=== PATIENT | male | born 1975 | race Caucasian/White ===

== ENCOUNTER 2021-08-04 19:32 | Inpatient (IN) | payer OTHER, SELFPAY ==
[2021-08-04] VITALS (19 sets, daily range): BP systolic 103–136; BP diastolic 68–98; PULSE 64–81; RESP 12–26; TEMP 35.9–36.8; O2SAT 94–98; BMI 33.9; BMI 35.2
--- NOTE | 2021-08-04 19:42 | W.ED.CHESTPA ---
HPI - Chest Pain General: Stated Complaint: STEMI Time Seen by Provider: 08/04/21 19:33 Source: patient and EMS Mode of arrival: EMS Limitations: no limitations History of Present Illness: 46-year-old male history of coronary artery disease had a stent placed back in 2017 he states he started having chest pain roughly 2 hours ago went to outside ER seen there had an EKG it showed a STEMI I spoke to physician on phone excepted transfer here. Patient has received 2 nitro his pain is down to 2 out of 10 EKG with EMS does show an inferior ST elevation TX. He denies any fevers. Has had some dyspnea and nausea and diaphoresis Associated symptoms: Deny abdominal pain, dyspnea, fever(s), nausea or vomiting Review of Systems Const: Denies: fever(s), chills, body aches or change in appetite Eyes: Denies: blurry vision or eye discomfort ENMT: Denies: throat pain or dental pain Card: Reports: chest pain Resp: Denies: dyspnea GI: Denies: abdominal pain, nausea, vomiting or diarrhea : Denies: dysuria Musc: Denies: neck pain or back pain Skin/Breast: Denies: rash Neuro: Denies: headache(s) Psych: Denies: depression Connor/Lymph: Denies: easy bruising All/Imm: Denies: urticaria PFSH ED PFSH: Medical History (Updated 08/04/21 @ 19:44 by Aly Sands MD) CAD (coronary artery disease) Social History (Updated 08/04/21 @ 19:45 by Aly Sands MD) Smoking and tobacco status: current every day smoker Physical Exam Const: COMMON NORMALS: patient oriented x3 GENERAL APPEARANCE: in distress and ill appearing HENMT: COMMON NORMALS: normocephalic and atraumatic HEAD & SCALP: normocephalic and atraumatic Eye: COMMON NORMALS: Equal, round and reactive pupils present and EOMs intact bilaterally PUPIL: Yes Equal, round and reactive pupils present Neck/C-Spine: COMMON NORMALS: full ROM and supple Chest: COMMONS NORMALS: normal inspection of the chest and normal palpation of entire chest wall Resp: COMMON NORMALS: normal respiratory effort, No retractions, No use of accessory muscles and clear to auscultation bilaterally AUSCULTATION: clear to auscultation bilaterally Cardio: COMMON NORMALS: regular rate, regular rhythm and No murmurs present (Cardio) RATE: regular rate RHYTHM: regular rhythm GI: COMMON NORMALS: Normal to inspection, nondistended, normoactive bowel sounds present, Soft to palpation, non-tender and no masses PALPATION: Yes Soft to palpation Extremity: COMMON NORMALS: normal to inspection and full ROM Neuro: COMMON NORMALS: patient oriented x3, moves all extremities and no focal motor deficits Psych: COMMON NORMALS: mental status grossly normal, Normal thought process present and cooperative THOUGHT PROCESS: Normal thought process present Skin: COMMON NORMALS: no rashes or lesions noted and no wounds GENERAL SKIN EXAM: no rashes or lesions noted MDM - Chest Pain Medical Decision Making Patient presents here with an ST elevation TX. Simulation Engineer is here patient received Plavix and heparin at outside facility patient is going to the Auto Glass Technician at this time. Critical Care Time Critical Care Time: Critical Care Time: Yes Total Critical Care Time: 35 Attestation: The high probability of a clinically significant, sudden or life threatening deterioration of the patient's CV system(s) required my full and direct attention, intervention and personal management. The critical care time is as shown. This time is in addition to time spent performing any reported procedures but includes the following: [x] Data and vital sign review and interpretation [x] Patient assessment, examination and intervention [x] Documentation [x] Medication orders and management Discharge Plan Discharge Patient Disposition: Admitted As Inpatient Clinical Impression: ST elevation (STEMI) myocardial infarction Condition: Stable Coding Level of Care Code ED Laborer Drying Department for Brady Mcdonald
--- NOTE | 2021-08-04 19:43 | ECG_ITS ---
[facility] Test Date: 2021-08-04 Pat Name: Roland Del Angel Department: Room: 105 Gender: Male Pharmacognosist: : 1975 Requested By: Aly Sands Order Number: [id number] Laura MD: Gavin Kruse M.D. Measurements Intervals [place] Rate: 72 P: 63 MD: 187 QRS: 2 QRSD: 102 T: 107 QT: 418 QTc: 458 Interpretive Statements SINUS RHYTHM INFERIOR MYOCARDIAL INFARCTION , POSSIBLY ACUTE [40+ ms Q WAVE AND/OR ST/T ABNORMALITY IN II/aVF] POSSIBLE ANTEROLATERAL MYOCARDIAL INFARCTION , OF INDETERMINATE AGE [30 ms Q WAVE IN I/aVL/V3-V6] ACUTE [place] No previous ECG available for comparison Electronically Signed On 08-05-2021 22:48:33 CDT by Gavin Kruse M.D. [id number]
--- NOTE | 2021-08-04 19:47 | P.HP_ITS ---
Providers/Chief Complaint Admitting Physician: radha Chief Complaint: STEMI History of Present Illness Roland Del Angel is a 46 year old male who says that he has had 2 heart attacks in the past. He was in a different state when these occurred. He states that he has 1 stent. He has never been to this facility before. 2 hours prior to admission he noticed the onset of what he calls his typical heart attack pain with vomiting, back pain, jaw pain and pain down his left arm. He states that he has not taken his medicines for 2 days. He went to the emergency room at [place] and was sent here as a STEMI alert. We did not receive any paperwork from the originating hospital but we were told his first troponin was negative. He states he is supposed to take metoprolol, atorvastatin, lisinopril, Brilinta, aspirin and nitroglycerin. Here his EKG shows ST segment elevation inferiorly. There are reciprocal changes in leads V1 and V2. Review of Systems Narrative: Patient was reluctant to provide a review of systems because he states he is in too much pain. PFSH Acute PFSH: Medical History (Updated 08/04/21 @ 19:44 by Aly Sands MD) CAD (coronary artery disease) Social History (Updated 08/04/21 @ 19:45 by Aly Sands MD) Smoking and tobacco status: current every day smoker Physical Exam Narrative: GENERAL: In general he looks uncomfortable. HEENT: Exam within normal limits. NECK: Supple without jugular vein distention. The carotid upstroke is normal without bruits. BACK: Exam normal. LUNGS: Clear. HEART: Regular rate and rhythm. ABDOMEN: Benign without organomegaly or tenderness. EXTREMITIES: No edema. NEUROLOGIC: Exam normal. SKIN: Unremarkable. Multiple tattoos in multiple areas A&P Assessment and plan (1) CAD (coronary artery disease): Status: Acute (2) ST elevation (STEMI) myocardial infarction: Status: Acute Plan Cardiac catheterization laboratory as soon as possible Attestations Medical Necessity Statement*: Patient requires hospitalization for management of an acute inferior wall MD. He will require a 2 midnight stay. Coding Level of Care Code New Pt Acute Stretcher Drier Operator for [facility] Fwd Patient Type New History Detailed Exam Detailed Medical Decision Making Moderate Complexity Diagnoses CAD (coronary artery disease) I25.10 ST elevation (STEMI) myocardial infarction I21.3 Time Spent (min) 30
--- NOTE | 2021-08-04 19:47 | XACV_ITS ---
Exam Room: 1 Ht: 183 cm Wt: 113 kg BSA: 2.44 m2 Gender: Male : 1975 Exam Priority: Routine Procedure(s): Procedure Description: Diagnostic procedure Procedure Description: PCI procedure Procedure Description: Left Heart Catheterization Procedure Description: Left ventriculography Procedure Description: Drug Eluting Coronary Stent Procedure Description: Coronary Angiography Diagnostic Cath Status: Emergency Diagnostic Findings * 46-year-old male with prior history of LAD stent in a different facility. Chest pain 2 hours prior to presentation to an outside facility. No records accompanied the patient. EKG revealed ST elevation in leads II, 3, aVF with ST depression in leads V1 and V2. Patient was brought to the Kiln Burner. * Initially the procedure was attempted via the right radial artery. The patient was agitated and would not hold still. He was moving his arms and legs everywhere. He had to be sedated in order to complete the procedure. It was completed via the right femoral artery. * Coronary angiography reveals right coronary artery dominance. The right coronary artery is occluded in the midportion. There is also an 85% distal right coronary artery lesion prior to the takeoff of the PDA. Circumflex contains a 50 to 60% eccentric stenosis in the proximal portion. The LAD is stented. The stent is patent. PCI Status: Emergency PCI LVEF Assessed: Yes PCI Indication: Immediate PCI for STEMI Interventional Findings * Guide was placed, a wire was placed across the mid right coronary artery lesion. The lesion was stented with a 4 x 15 mm stent. The distal right coronary artery lesion was then noted. This lesion was stented with a 4 x 12 mm stent. No complications.. Decision for PCI with Surgical Consult: No PCI for Multi-vessel Disease: No Conclusions 1. Acute inferior wall AR with occluded right coronary artery. Mid right coronary artery stent followed by distal right coronary artery stent. Previously placed LAD stent is patent. Recommendations * Medical treatment. Interventional RX Recommendation: medical therapy and/or counseling Diagnostic RX Recommendation: medical therapy and/or counseling Anticoagulation: Heparin Ventriculography Ejection Fraction: 45.0 % Pressures Phase:Rest AO : 63 / 47 ( 55 ) @ 3:50:17 PM 99 / 60 ( 75 ) @ 3:50:17 PM 98 / 60 ( 75 ) @ 3:50:17 PM LV : 122 / -5 / 13 @ 3:50:17 PM 122 / -4 / 13 @ 3:50:17 PM 129 / -3 / 13 @ 3:50:17 PM 121 / -3 / 16 @ 3:50:17 PM Valves Phase:DefaultPhase AV : 23.0 @ 8:50:17 PM AV Mean Gradient: 16.0 @ 8:50:17 PM Clinical Evaluation EBL: 5mL-10mL Procedural Details Pre-Procedure Time Out. Identified patient by full name and date of as verbalized by the patient/guarantor. Does the consent match the physician's order: N/A Emergent. Accurate & Complete Informed Consent: N/A Emergent; Informed Consent not obtained due to time critical life threat. Inpatient/Outpatient History & Physical on Chart: N/A Emergent; Informed Consent not obtained due to time critical life threat. If H&P is completed, is and addenduem needed: N/A Emergent; Informed Consent not obtained due to time critical life threat; If yes, is the addendum complete: N/A Emergent; Informed Consent not obtained due to time critical life threat. Visualize and Verify Site with Patient/Guarantor: N/A. Relevant Radiology Images available: N/A Emergent; Informed Consent not obtained due to time critical life threat. Pre-op teaching completed and patient verbalized understanding. The risks, benefits, and alternatives of sedation and/or procedure were discussed by physician. The patient agrees to continue. Procedure started. [facility] Clinical Fraility Score: 3: Managing Well. Kiln Burner Indications: ACS <= 24 hours. Chest Pain Symptom Assessment: Typical Angina Symptoms. Cardiovascular Instability: Yes, if yes, Persistant Ischemic Symptoms. Correct patient, site and procedure confirmed by cath team. Current diagnosis: STEMI. PERRLA. Strong, equal hand mortgage protection specialist bilaterally. Lungs clear x 5 lobes. IV Site on Arrival: 20 gauge in the right anticubital. IV Site on Arrival: 20 gauge in the left anticubital. IV Fluids: 0.9% NaCl at KVO. 0 mL infused prior to brick and blocker aid labor. Pre Procedural Pulses: right radial was 3+. Oxygen started at 2liters/min via nasal canula. right groin was prepped with chloroprep then draped in the usual sterile fashion. right radial was prepped with chloroprep then draped in the usual sterile fashion. Baseline sample Acquired. HR: 80 BPM. Physician notified. Patient's family unavailable. Equipment: 6F - Radial. Cardiac Cath Pack. ACIST Manifold Kit Model BT 2000. Heparinized Saline (2 units/mL), 1000 mL bag. Physician arrived. Physician scrubbed in. Immediate Pre-Procedure Time Out. Correct Patient: Yes; Correct Procedure: Yes; Correct Site: Yes; Correct Patient Position: Yes; Correct Supplies: Yes; Dried Flammable Prep: Yes; Blood Products Available: N/A;. Lidocaine 1% infiltrated to the right radial. Aborting radial access, moving to femoral. Lidocaine 1% infiltrated to the right groin. Arterial access obtained with micropuncture set. PCI Indication: STEMI. 6 dominican JR 4 guide catheter was inserted over the wire. [place] guidewire was advanced through the guide catheter to lesion in the mid RCA. Inflation Number : 1 A BARBRA R DARSHAN 4.0X15 PEE -Lot Number# [id number]. Exp was prepped and advanced across the Mid RCA. The stent was deployed at 12 CECY for 0:32 seconds. Results checked. Stent balloon out over wire. Inflation Number : 1 A MDT R DARSHAN 4.0X12 PEE -Lot Number# [id number] Exp was prepped and advanced across the Dist RCA. The stent was deployed at 12 CECY for 0:26 seconds. Wire out. Guide catheter out. ALLIANCE DIRECTOR here. sheet pile hammer operator called to [facility] anesthesia stat. EDP Sample taken: LV 122/-6,13; HR: 84 BPM; SpO2: 96%. A 6 dominican Angled Pig catheter in over wire. LV gram performed in KERNS @ 10 mL/second for a total of 30 mL. EDP Sample taken: LV 122/-5,13; HR: 86 BPM; SpO2: 95%. EDP Sample taken: LV 129/-4,13; HR: 89 BPM; SpO2: 94%. Pullback taken: LV 121/-4,16; AO 99/60(75); Mean: 16mmHg, Peak to Peak: 23mmHg, SEP: 18sec/min; HR: 85 BPM; SpO2: 93%. Catheter out. Labs drawn and sent to lab. Sheath(s) sutured into position with 2-0 silk and sterile 4x4's and Op-site applied over the site. No oozing or signs and symptoms of hematoma noted. Arterial sheath flushed and connected to tranducer and pressure bag with heparinized saline. Post Procedure: bilateral dorsalis pedis pulse 2+. Post Procedure: bilateral posterior tibial pulse 2+. PERRLA. Strong, equal hand mortgage protection specialist bilaterally. No VTE prophylaxis required. Medication's Wasted: Heparin = 1000 units. Total IV fluids: 67 mL. A Suture was successful obtaining hemostatsis at the Right Femoral artery insertion site. PCI Indication : Immediate PCI for STEMI. Post-op diagnosis: anterior wall AR. Complications: none. Estimated blood loss: 5mL-10mL. Responsiveness - Normal response to verbal stimuli; alert and oriented, PERRLA. Airway - Unaffected, no intervention required; spontaneous ventilation. Circulation: W/N/L, pulses unchanged. Nausea/Vomiting: No. Procedure completed. Patient transferred by bed to 1st floor. Stent balloon out over wire. Results checked. Vital chart was stopped. Access Site Site: Right Femoral artery Sheath Size: 6 Fr Hemostasis Method: Suture Hemostasis Success: Successful Procedure Medications Start: 8:02 PM Stop: 8:02 PM Medication: Versed Amount: 1 mg Route: I.V. Start: 8:02 PM Stop: 8:02 PM Medication: Fentanyl Amount: 50 mcg Route: I.V. Start: 8:02 PM Stop: 8:02 PM Medication: Versed Amount: 1 mg Route: I.V. Start: 8:04 PM Stop: 8:04 PM Medication: Fentanyl Amount: 50 mcg Route: I.V. Start: 8:05 PM Stop: 8:05 PM Medication: Versed Amount: 1 mg Route: I.V. Start: 8:07 PM Stop: 8:07 PM Medication: Versed Amount: 1 mg Route: I.V. Start: 8:08 PM Stop: 8:08 PM Medication: Versed Amount: 1 mg Route: I.V. Start: 8:08 PM Stop: 8:08 PM Medication: Fentanyl Amount: 50 mcg Route: I.V. Start: 8:18 PM Stop: 8:18 PM Medication: Atropine Amount: 0.2 mg Route: I.V. Start: 8:26 PM Stop: 8:26 PM Medication: Zofran (ondansetron) Amount: 4 mg Route: I.V. Start: 8:35 PM Stop: 8:35 PM Medication: Heparin Amount: 2000 units Route: I.V. I, the attending physician, have reviewed and verified all procedure medications. Yes, all medications given per verbal order Report Signatures Finalized by Dr. Jadiel Pascal MD on 08/04/2021 08:53 PM
[2021-08-04] MEDS: ondansetron 2 mg/ML SDV 2 mL 4 MG IVP (19:52)
[2021-08-04] MEDS: morphine 4 mg/mL SDV 1 mL IVP (19:52)
[2021-08-04 20:01] LABS: Basophils % 0.4 %; Eosinophils # 0.2 10^3/uL (0.0-0.8); Eosinophils % 1.7 %; Hematocrit 42.4 % (42.0-52.0); Hemoglobin 14.7 g/dL (11.7-16.6); Lymphocytes # 1.9 10^3/uL (0.8-4.8); Lymphocytes % 20.2 %; Mean Corpuscular HGB Conc 34.7 g/dL (30.0-36.0); Mean Corpuscular Volume 92.2 fl (80-94); Mean Platelet Volume 10.4 fL (7.4-10.4); Monocytes # 0.6 10^3/uL (0.2-0.9); Monocytes % 6.3 %; Neutrophils # 6.61 10^3/uL (1.8-7.7); Neutrophils % 71.2 %; Nucleated Red Blood Cells % 0 %; Platelet Count 155 10^3/cmm (130-400); Red Cell Distribution Width 12.7 % (12.1-15.1); White Blood Count 9.3 10^3/uL (4.0-10.0)
[2021-08-04 20:19] LABS: Troponin(5th) Baseline 10 ng/L (0-15)
[2021-08-04 20:21] LABS: Alanine Aminotransferase 33 U/L (0-41); Alkaline Phosphatase 96 IU/L (40-130); Aspartate Amino Transferase 28 U/L (0-40); Blood Urea Nitrogen 21 mg/dL (6-20); Calcium 9.2 mg/dL (8.5-10.5); Carbon Dioxide 21 mmol/L (22-29); Chloride 106 mmol/L (98-107); Creatinine Clr Calc Pharmacy 130.5026; Globulin 2.9 g/dL (1.3-4.6); Glomerular Filtration Rate 90.1 mL/min (90-130); Glucose 127 mg/dL (65-115); Osmolality Calculated 293 mOsm/kg (285-295); Sodium 139 mmol/L (136-145); Total Bilirubin 0.4 mg/dL (0.15-1.2); Total Protein 6.9 g/dL (6.6-8.7)
[2021-08-04 20:59] LABS: Partial Thromboplastin Time 66.7 SECONDS (23.9-36.7)
--- NOTE | 2021-08-04 21:07 | PC.NURSE ---
Patient received from rn cardiac cath via bed s/p [facility] with PCI. Received report DAVION Pratt. Patient is supine currently. Right femoral access. Sheath remains in place attached to pressure bag. No s/s of bleeding or hematoma formation at this time. Instructed patient on site care and restrictions. Patient verbalized understanding. Spouse at bedside presently. C/o only of mild pain to chest reporting feeling better and different character in pain. Will continue to monitor.
[2021-08-04] MEDS: temazepam 15 mg Capsule PO (21:19)
[2021-08-04] MEDS: atorvastatin 40 mg Tablet 80 MG PO (21:19)
[2021-08-04 21:29] LABS: Troponin 5 2HR 224.1 ng/L (0-15); Troponin 5 2HR Delta 214.1 ABS# (0-10)
[2021-08-04] MEDS: dextrose 5%-sod chloride 0.45% 1,000 ML 100 ML IV (22:07)
[2021-08-04] MEDS: acetaminophen 325 mg Tablet 650 MG PO (22:14)
[2021-08-05] VITALS (18 sets, daily range): BP systolic 96–139; BP diastolic 46–80; PULSE 50–72; RESP 16–23; TEMP 35.9–36.6; O2SAT 7–99
[2021-08-05] LABS: Partial Thromboplastin Time 28.7 SECONDS (23.9-36.7)
--- NOTE | 2021-08-05 00:53 | PC.NURSE ---
Patient's PTT within parameters for sheath removal. Instructed patient on sheath removal, site care and restrictions. Patient verbalized complete understanding. Initiated sheath removal at 0028 per protocol. Hemostasis achieved immediately. Maintained pressure to site for 20min. No s/s of bleeding or hematoma formation observed. VS remained WNL. Covered site with 2x2 and bio-occlusive dressing. Patient denies pain to site. Continues to c/o headache, refusing medication at this time waiting for Tylenol to work . Will continue to monitor.
--- NOTE | 2021-08-05 01:36 | PC.NURSE ---
Assisted patient to left side for comfort. Patient's right leg remain straight at this time. Dressing to right groin remains c,d,i with no s/s of bleeding or hematoma formation observed. Reinforced site care instructions. Patient again verbalized understanding. Will continue to monitor.
--- NOTE | 2021-08-05 01:43 | ECG_ITS ---
[facility] Test Date: 2021-08-05 Pat Name: Roland Del Angel Department: Room: 105 Gender: Male Clearing Inspector: : 1975 Requested By: Aly Sands Order Number: [id number] Laura MD: Gavin Kruse M.D. Measurements Intervals [place] Rate: 68 P: 57 MO: 170 QRS: -12 QRSD: 106 T: 2 QT: 444 QTc: 472 Interpretive Statements SINUS RHYTHM WITH SINUS ARRHYTHMIA POSSIBLE LATERAL MYOCARDIAL INFARCTION , PROBABLY OLD [30 ms Q WAVE IN I/aVL/V5/V6] INFERIOR MYOCARDIAL INFARCTION , PROBABLY OLD [40+ ms Q WAVE AND/OR ST/T ABNORMALITY IN II/aVF] No previous ECG available for comparison Electronically Signed On 08-05-2021 23:05:16 CDT by Gavin Kruse M.D. [id number]
--- NOTE | 2021-08-05 03:57 | PC.NURSE ---
Patient resting on right side. Dressing to right groin remains c,d,i at this time with no s/s of bleeding or hematoma formation observed. Patient denies pain to site. No distress observed. Will continue to monitor.
[2021-08-05 04:46] LABS: Troponin 5 6HR 1456 ng/L (0-15); Troponin 5 6HR Delta 1446 ng/L (0-12)
--- NOTE | 2021-08-05 06:32 | PC.NURSE ---
Received verbal orders from Dr Pascal as ordered for pain and nausea. RBVO
[2021-08-05] MEDS: morphine 4 mg/mL SDV 1 mL 2 MG IVP (06:45)
[2021-08-05] MEDS: ondansetron 2 mg/ML SDV 2 mL 4 MG IVP (06:45)
[2021-08-05] MEDS: alum-mag-hydroxide-sime 30 mL UDC PO (08:28)
[2021-08-05] MEDS: ticagrelor 90 mg Tablet PO ×2 (08:29→17:33)
[2021-08-05] MEDS: metoprolol tartrate 50 mg Tablet PO (08:29)
[2021-08-05] MEDS: acetaminophen 325 mg Tablet 650 MG PO ×2 (08:29→18:59)
[2021-08-05] MEDS: aspirin 81 mg EC Tablet PO (08:29)
--- NOTE | 2021-08-05 09:40 | USCV_ITS ---
Roland Del Angel Age: 46 Gender: M : 1975 Exam Date: 08/05/2021 14:50 Ordering Phys: Keith Rios M.D ([email or web address]) Technologist: Urban Ho [place] [facility] [place]: mi BP: 104 / 66 HR: 66 Rhythm: Sinus Technical Quality: Adequate MEASUREMENTS (Male / Female) Normal Values 2D ECHO LV Diastolic Diameter PLAX 5.0 cm 4.2 - 5.9 / 3.9 - 5.3 cm LV Systolic Diameter PLAX 3.6 cm IVS Diastolic Thickness 1.3 cm 0.6 - 1.0 / 0.6 - 0.9 cm IVS Systolic Thickness 1.2 cm LVPW Diastolic Thickness 1.1 cm 0.6 - 1.0 / 0.6 - 0.9 cm LVPW Systolic Thickness 1.3 cm LVOT Diameter 2.0 cm LV Ejection Fraction 2D Teich 55.8 % LV Ejection Fraction MOD 2C 55.7 % LV Ejection Fraction 2C AL 56.2 % LA Diameter 3.5 cm M-MODE Aortic Annulus Diameter 3.9 cm LA Ao Ratio MM 1.0 MV E Point Septal Separation 0.7 cm DOPPLER AV Peak Velocity 104.0 cm/s LVOT Peak Velocity 91.0 cm/s AV Area Cont Eq vti 3.0 cm squared AV Area Cont Eq pk 2.8 cm squared MV Area PHT 5.0 cm squared Mitral E to A Ratio 1.4 MV E' Velocity 53.0 cm/s Mitral E to MV E' Ratio 10.9 Mitral E to LV E' Lateral Ratio 10.7 Mitral E to LV E' Septal Ratio 11.2 TR Peak Velocity 235.0 cm/s TR Peak Gradient 22.1 mmHg TV Peak E Velocity 104.0 cm/s Right Atrial Pressure 3.0 mmHg Pulmonary Artery Systolic Pressu 25.1 mmHg FINDINGS Left Ventricle Normal left ventricular size. LV systolic function is normal with EF of 55-60%. No regional wall motion abnormalities. Diastolic function is normal Right Ventricle The right ventricle is normal in size and function. Right Atrium The right atrium is normal in size. Left Atrium The left atrium is normal in size. Mitral Valve Structurally normal mitral valve without significant stenosis or prolapse. There is mild to moderate mitral regurgitation. Aortic Valve Structurally normal aortic valve without significant sclerosis or stenosis. There is mild aortic regurgitation. Tricuspid Valve Structurally normal tricuspid valve without significant stenosis. Mild tricuspid regurgitation. Pulmonary artery systolic pressure is normal. Pulmonic Valve Structurally normal pulmonic valve without significant stenosis. There is no pulmonic regurgitation. Pericardium Normal pericardium without effusion. Aorta Normal ascending aorta dimension. CONCLUSIONS LV systolic function is normal with EF of 55-60% Diastolic function is normal Mild to moderate mitral regurgitation Mild aortic regurgitation Mild tricuspid regurgitation No comparison studies are available Keith Rios MD (Electronically Signed) Final Date: 05 August 2021 17:05 S
--- NOTE | 2021-08-05 09:52 | PC.CHAP ---
Pastoral Care Encounter/Spiritual Assessment Type of Contact [] Declined case hardener visit [] Patient/Family/Request visit [] Outpatient visit [] Follow-up visit [] Physician referral [] Code/Alert [x] Routine visit [] Staff referral [] Actively dying [] Patient sleeping [] Family support [] [] Out of room [] Palliative care [] [] Receiving care in room [] Pre-surgical visit [] Trauma [] Long length of stay [] ICU visit [] Other: Relational/Emotional Strength [] Patient feels connected with others/family/visitors/staff [] Distress [] Loneliness/isolation [] Abandonment Spirituality of Patient [] Person of Casie [] Attends Methodist of their Casie [] Believes in Prayer [] Reads Bible or Cheondoism materials [] There are Spiritual issues to be addressed Milk 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 Interventions [x] Prayer [x] Active listening [x] Non-anxious presence [x] Spiritual/emotional support [] Crisis/trauma care [] Spiritual counseling [] Bereavement support [] Provided bereavement packet [] Provided Bible/devotional materials [] Provided toy/stuffed animal, coloring book to patient or family member [] Provided Communion [] Anointing/[place] [] Salvation [x] Completed spiritual assessment [] Other: Impact on Illness or Injury [] Angry [] Fearful [] Anxious [] Often cries [] Exhaustion [] Unable to work [] Unable to attend spiritism [] Unable to walk/stand [] Unable to read [] Unable to drive [] Unable to eat/drink [] Unable to sleep [] Unable to be with family [] Patient intubated [] Other: Summary patient resting pretty good... Time spent with patient 5 min
[2021-08-05 10:37] LABS: Anion Gap 17.5 (5-19); Blood Urea Nitrogen 15 mg/dL (6-20); Calcium 9.2 mg/dL (8.5-10.5); Carbon Dioxide 20 mmol/L (22-29); Chloride 105 mmol/L (98-107); Glomerular Filtration Rate 120.4 mL/min (90-130); Glucose 162 mg/dL (65-115); Osmolality Calculated 292 mOsm/kg (285-295); Potassium 3.5 mmol/L (3.5-5.1); Sodium 139 mmol/L (136-145)
--- NOTE | 2021-08-05 17:34 | PC.NURSE ---
spoke with Dr Rios with concerns of giving patient metoprolol at this time due to HR in the high 40s and 50s instructions to hold does and reassess at 2100 if less than 60 hold dose
[2021-08-05] MEDS: atorvastatin 40 mg Tablet 80 MG PO (18:59)
--- NOTE | 2021-08-05 23:11 | P.PN_ITS ---
Subjective Subjective: Patient is doing well. Denies chest pain. Femoral access site is normal Vitals/I&O/Wt Last Vital Signs Temp 96.7 F L 08/05/21 19:26 Pulse 58 L 08/05/21 21:22 Resp 16 08/05/21 19:26 BP 139/73 08/05/21 19:26 Pulse Ox 97 08/05/21 21:22 08/05/21 08/05/21 08/06/21 14:59 22:59 06:59 Intake Total 1480 / 1480 700 / 2180 Balance 1480 / 1480 700 / 2180 Weight last 48 hrs Weight 259 lb 11.2 oz Weight 250 lb Physical Exam Narrative: GENERAL: In general he looks uncomfortable. HEENT: Exam within normal limits. NECK: Supple without jugular vein distention. The carotid upstroke is normal without bruits. BACK: Exam normal. LUNGS: Clear. HEART: Regular rate and rhythm. ABDOMEN: Benign without organomegaly or tenderness. EXTREMITIES: No edema. NEUROLOGIC: Exam normal. SKIN: Unremarkable. Multiple tattoos in multiple areas Data : 08/04/21 19:49 08/05/21 02:33 A&P Assessment and plan (1) CAD (coronary artery disease): Status: Acute (2) ST elevation (STEMI) myocardial infarction: Status: Acute (3) Hypertension: Status: Acute Plan Patiet underwent successful revascularization of RCA yesterday. He is doing well. Continue aspirin and brilinta High intensity statin therapy Order echo Tele monitoring If patient ambulates well and lab stay in the normal range, will plan for discharge tomorrow Attestations Medical Necessity Statement*: Care expect to cross 2 midnights. 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
[2021-08-06 03:06] VITALS: BP 111/66; PULSE 54; RESP 16; TEMP 36.6; O2SAT 98
[2021-08-06 03:07] VITALS: PULSE 70
--- NOTE | 2021-08-06 07:16 | PC.NURSE ---
received bedside report from lillie smith. reviewed poc, assumed care of pt. no needs identified at this time.
--- NOTE | 2021-08-06 07:34 | P.DS_ITS ---
Discharge Providers Date of Admission: 08/04/21 21:01 Date of Discharge: August 06, 2021 Attending Provider at Admission: Jadiel Pascal MD Attending Provider at Discharge: Keith Rios MD Diagnoses at Discharge Discharge Diagnosis (1) CAD (coronary artery disease): Status: Acute (2) ST elevation (STEMI) myocardial infarction: Status: Acute (3) Hypertension: Status: Acute Reason for Visit Reason for Visit: STEMI Brief History: 46-year-old man with past medical history of coronary artery disease and PCI in the past at outside facility presented with 2hour symptoms of back pain, jaw pain and discomfort down the left arm. He was transferred from [place] with diagnosis of STEMI. EKG showed ST elevations inferior leads. Drupal Php Developer was emergently activated and patient was taken to the Drupal Php Developer. Hospital Course Hospital Course 46-year-old man with past medical history of coronary artery disease and PCI in the past at outside facility presented with 2hour symptoms of back pain, jaw pain and discomfort down the left arm. He was transferred from [place] with diagnosis of STEMI. EKG showed ST elevations inferior leads. Drupal Php Developer was emergently activated and patient was taken to the Drupal Php Developer. He underwent successful revascularization of RCA with PEE x2. Echocardiogram showed normal LV systolic function and mild to moderate mitral regurgitation. Patient stayed in the hospital in a stable condition and was discharged home on aspirin, Brilinta, Lipitor, lisinopril and metoprolol. Physical Exam 2 Narrative: GENERAL: Patient is alert, awake and oriented x3. [] NECK: No jugular vein distension. [] HEENT: No cyanosis. No icterus. No pallor. [] HEART: Regular S1 and S2. Grade 3/6 systolic murmur LUNGS: Clear to auscultate bilaterally. [] ABDOMEN: Soft, nontender and nondistended. Positive bowel sounds. No guarding, rebound or tenderness. [] CENTRAL NERVOUS SYSTEM: Grossly nonfocal. [] EXTREMITIES: Lower extremities with 1+ edema bilaterally. Pulses palpable in the lower extremities, both dorsalis pedis and posterior tibial. 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 echo complete* [id number] Routine Ultrasound 08/05/21 09:40 Completed Laboratory Results WBC 9.3 10^3/uL (4.0-10.0) 08/04/21 19:49 RBC 4.60 10^6/uL (4.1-5.3) 08/04/21 19:49 Hgb 14.7 g/dL (11.7-16.6) 08/04/21 19:49 Hct 42.4 % (42.0-52.0) 08/04/21 19:49 MCV 92.2 fl (80-94) 08/04/21 19:49 MCH 32.0 pg (28.0-34.0) 08/04/21 19:49 MCHC 34.7 g/dL (30.0-36.0) 08/04/21 19:49 RDW 12.7 % (12.1-15.1) 08/04/21 19:49 Plt Count 155 10^3/cmm (130-400) 08/04/21 19:49 MPV 10.4 fL (7.4-10.4) 08/04/21 19:49 Neut % (Auto) 71.2 % 08/04/21 19:49 Lymph % (Auto) 20.2 % 08/04/21 19:49 [place] % (Auto) 6.3 % 08/04/21 19:49 Eos % (Auto) 1.7 % 08/04/21 19:49 Baso % (Auto) 0.4 % 08/04/21 19:49 Neut # (Auto) 6.61 10^3/uL (1.8-7.7) 08/04/21 19:49 Lymph # (Auto) 1.9 10^3/uL (0.8-4.8) 08/04/21 19:49 [place] # (Auto) 0.6 10^3/uL (0.2-0.9) 08/04/21 19:49 Eos # (Auto) 0.2 10^3/uL (0.0-0.8) 08/04/21 19:49 Baso # (Auto) 0.0 10^3/uL (0.0-0.1) 08/04/21 19:49 Nucleated RBC % (auto) 0 % 08/04/21 19:49 Nucleated RBCs # 0.0 /100WBC 08/04/21 19:49 APTT 28.7 SECONDS (23.9-36.7) D 08/04/21 23:25 Sodium 139 mmol/L (136-145) 08/05/21 02:33 Potassium 3.5 mmol/L (3.5-5.1) 08/05/21 02:33 Chloride 105 mmol/L (98-107) 08/05/21 02:33 Carbon Dioxide 20 mmol/L (22-29) L 08/05/21 02:33 Anion Gap 17.5 (5-19) 08/05/21 02:33 BUN 15 mg/dL (6-20) 08/05/21 02:33 Creatinine 0.7 mg/dL (0.7-1.2) 08/05/21 02:33 GFR Calculation 120.4 mL/min (90-130) 08/05/21 02:33 Glucose 162 mg/dL (65-115) H 08/05/21 02:33 Calculated Osmolality 292 mOsm/kg (285-295) 08/05/21 02:33 Calcium 9.2 mg/dL (8.5-10.5) 08/05/21 02:33 Total Bilirubin 0.4 mg/dL (0.15-1.2) 08/04/21 19:49 AST 28 U/L (0-40) 08/04/21 19:49 ALT 33 U/L (0-41) 08/04/21 19:49 Alkaline Phosphatase 96 IU/L (40-130) 08/04/21 19:49 Troponin T Baseline 10 ng/L (0-15) 08/04/21 19:49 Troponin T 120 Minute 224.1 ng/L (0-15) H 08/04/21 20:36 Delta Troponin T 214.1 ABS# (0-10) H* 08/04/21 20:36 Troponin T Hi Sens 6Hr 1456 ng/L (0-15) H 08/05/21 02:33 Troponin T Hi Sens 6Hr Delta 1446 ng/L (0-12) H* 08/05/21 02:33 Total Protein 6.9 g/dL (6.6-8.7) 08/04/21 19:49 Albumin 4.0 g/dL (3.5-5.2) 08/04/21 19:49 Globulin 2.9 g/dL (1.3-4.6) 08/04/21 19:49 Vitals Last Vital Signs Temp 97.9 F 08/06/21 03:06 Pulse 70 08/06/21 03:07 Resp 16 08/06/21 03:06 BP 111/66 08/06/21 03:06 Pulse Ox 98 08/06/21 03:06 Discharge Plan Discharge Patient Disposition: Home Condition: Stable Prescriptions: New lisinopril 5 mg tablet 5 mg PO DAILY Qty: 90 1RF Continued Lipitor 80 mg Tablet 80 mg PO DAILY 0RF aspirin 81 mg Tablet,Delayed Release (Dr/Ec) 81 mg PO DAILY 0RF Vitamin D3 50 mcg (2,000 unit) Tablet 50 mcg PO DAILY 0RF Brilinta 90 mg Tablet 90 mg PO BID 0RF Changed metoprolol tartrate 25 mg Tablet 12.5 mg PO BID Qty: 0 0RF Discontinued lisinopril 10 mg Tablet 10 mg PO DAILY 0RF hydrochlorothiazide 25 mg Tablet 25 mg PO DAILY 0RF Discharge Orders: Discharge Order (Routine); Ordered 08/06/21 Ordered By: Keith Rios Referrals: Randall Boss DO [Physician] - 08/13/21 10:30 am (You have an appointment with Dr. Boss to establish primary care next August 13 at 10:30.) Keith Rios M.D [Physician] - 1 month (Please follow-up with Dr. Rios on October 01 at 3:45P.M. If you have any questions or need to reschedule. Please call ) Stefany Perry FNP [Nurse Practitioner] - 7-10 days (Please follow-up with Stefany Perry on August 13 at 1:15P.M. If you have any queation or need to reschedule. Please call ) Discharge Diet: Cardiac Discharge Activity: Increase activity as tolerated Patient Instructions: Lisinopril (By mouth) (Prinivil, Zestril), Coronary Artery Disease (DC), Coronary Angioplasty (DC), Hypertension (DC), Opioid Safety, Post Angiogram Home Care Instructions Activity Restrictions/Additional Instructions: Please do not lift more than 5 pounds of weight for the next 5 days Discharge Attestations Time Spent in Discharge Care*: greater than 30 min Quality Metrics Clinical Quality Measures [ Acute Myocardial Infaction { Clinical Trial Participant: No; Contraindication to aspirin: None; Aspirin prescribed; Contraindication to statin: None; Statin prescribed; Contraindication to PCI: None; PCI performed;}] Coding Level of Care Code Acute Chg FW DC note Diagnoses CAD (coronary artery disease) I25.10 ST elevation (STEMI) myocardial infarction I21.3 Hypertension I10
[2021-08-06] MEDS: ticagrelor 90 mg Tablet PO (08:13)
[2021-08-06] MEDS: metoprolol tartrate 25 mg Tablet 12.5 MG PO (08:13)
[2021-08-06] MEDS: aspirin 81 mg EC Tablet PO (08:13)
[2021-08-06 10:24] VITALS: BP 139/91; PULSE 60; RESP 16; TEMP 36.6
== END 2021-08-06 10:26 | disposition home or self-care (01) | DRG 247 ==
LOC: ER 19:43 → CCL 19:47 → CSU 21:02
PROVIDERS: Internal Medicine; Admitting Provider Internal Medicine Cardiovascular Disease; Emergency Provider Emergency Medicine; Visit Provider Internal Medicine Cardiovascular Disease
PROC: 027035Z Dilation of Coronary Artery, One Artery with Two Drug-eluting Intraluminal Devices, Percutaneous Approach (ICD-10-PCS; principal; 2021-08-04 19:00)
PROC: 027035Z Dilation of Coronary Artery, One Artery with Two Drug-eluting Intraluminal Devices, Percutaneous Approach (ICD-10-PCS; 2021-08-04 19:00)
DX: I21.11 ST elevation (STEMI) myocardial infarction involving right coronary artery (principal); I25.10 Atherosclerotic heart disease of native coronary artery without angina pectoris; Z95.5 Presence of coronary angioplasty implant and graft; F17.210 Nicotine dependence, cigarettes, uncomplicated; I25.2 Old myocardial infarction; Z91.14 Patient's other noncompliance with medication regimen; Z79.82 Long term (current) use of aspirin; Z79.02 Long term (current) use of antithrombotics/antiplatelets
CPT/HCPCS: 36415; 80048; 80053; 84484; 85025; 85730; 93005; 93306; 93458; 96374; 96375; 99285; C1725; C1769; C1874; C1887; C1894; C9600; J0461; J1644; J2250; J2270; J2405; J2704; J3010; J3490; J7799; Q9967

== ENCOUNTER → 2021-08-13 11:32 | Outpatient (BNVA) | payer OTHER, SELFPAY | PROVIDERS: Visit Provider Family Medicine | DX: I10 Essential (primary) hypertension (principal); I25.10 Atherosclerotic heart disease of native coronary artery without angina pectoris; Z76.89 Persons encountering health services in other specified circumstances; I21.9 Acute myocardial infarction, unspecified | CPT/HCPCS: 80053; 80061; 83036; 84443 ==

== ENCOUNTER 2021-12-02 09:12 | Outpatient (CLI) | payer OTHER, SELFPAY ==
[2021-12-02 09:52] LABS: Chol HDL Ratio 4.77 mg/dL (1.0-5.00); Cholesterol 124 mg/dL (0-200); HDL Cholesterol 26 mg/dL (60-100); LDL Cholesterol Calculated 51 mg/dL (50-129); LDL HDL Ratio 1.96 RATIO (0.00-3.22); Triglycerides 233 mg/dL (0-150)
== END 2021-12-02 09:13 | disposition home or self-care (01) ==
LOC: LAB 09:14
PROVIDERS: PCP Family Medicine; Visit Provider Internal Medicine
DX: I25.10 Atherosclerotic heart disease of native coronary artery without angina pectoris (principal)
CPT/HCPCS: 36415; 80061

== ENCOUNTER → 2022-04-14 13:26 | Outpatient (BNVA) | payer OTHER, SELFPAY | PROVIDERS: PCP Family Medicine; Visit Provider Registered Nurse | DX: R05.9 Cough, unspecified (principal); J01.40 Acute pansinusitis, unspecified | CPT/HCPCS: 87400 ==

== ENCOUNTER 2022-06-19 15:25 | Emergency (ER) | payer OTHER, SELFPAY ==
[2022-06-19] VITALS (9 sets, daily range): BP systolic 109–144; BP diastolic 77–97; PULSE 78–97; RESP 14–22; TEMP 36.8; O2SAT 94–98
--- NOTE | 2022-06-19 15:29 | XRR_ITS ---
PROCEDURE INFORMATION: Exam: XR Chest Exam date and time: 06/19/2022 3:41 PM Age: 46 years old Clinical indication: Pain; Angina pectoris; Additional info: Cp TECHNIQUE: Imaging protocol: Radiologic exam of the chest. Views: 1 view. COMPARISON: No relevant prior studies available. FINDINGS: Lungs: Unremarkable. No consolidation. Pleural spaces: Unremarkable. No pleural effusion. No pneumothorax. Heart/Mediastinum: Unremarkable. No cardiomegaly. Bones/joints: Unremarkable. XR/XR chest 1V portable [id number] IMPRESSION: No acute findings.
--- NOTE | 2022-06-19 15:30 | ECG_ITS ---
[facility] Test Date: 2022-06-19 Pat Name: Roland Del Angel Department: Room: Gender: Male Paper Sheeter: : 1975 Requested By: Kit Espinal Order Number: [id number] Sanchez MD: Gavin Kruse M.D. Measurements Intervals [place] Rate: 97 P: 37 DC: 173 QRS: -10 QRSD: 88 T: 21 QT: 341 QTc: 434 Interpretive Statements SINUS RHYTHM POSSIBLE INFERIOR MYOCARDIAL INFARCTION , PROBABLY OLD [30 ms Q WAVE IN II/aVF] Compared to ECG 08/05/2021 02:02:37 Sinus arrhythmia no longer present Myocardial infarct finding still present Electronically Signed On 06-19-2022 22:23:37 WATCH CRYSTAL EDGE GRINDER by Gavin Kruse M.D. [id number]
[2022-06-19] MEDS: aspirin 81 mg Chew Tablet 324 MG PO (15:47)
--- NOTE | 2022-06-19 15:47 | ED_ITS ---
Documented by User: Jordi Anderson DO 06/20/22 06:40 HPI - Chest Pain General: Chief Complaint: Chest Pain Stated Complaint: heart pt, chest pain Time Seen by Provider: 06/19/22 15:35 Source: patient Mode of arrival: ambulatory History of Present Illness: 46-year-old male with known history of coronary disease presents emergency room with 2 days of chest pain describes it as varying from dull to sharp. He has a specific area left mid upper back that is the location of most of the pain denies any diaphoresis or dyspnea. He has not noticed anything that exacerbates or relieves the symptoms. He has previously had MIs with angiography. MD complaint: chest pain Pertinent past history: coronary artery disease Onset (ago): day(s) (2) Timing of current episode: episodic Prior episodes: Yes Onset: during rest Quality: sharp Relieving factors: nothing Exacerbating factors: nothing Associated symptoms: Deny abdominal pain, diaphoresis, dyspnea, fever(s), leg edema, nausea, palpitations, sense of impending doom, syncope or vomiting Treatment prior to arrival: none Review of Systems Const: Denies: fever(s) or diaphoresis ENMT: Denies: throat pain, ear or mastoid pain, nasal discharge or nasal congestion Card: Denies: chest pain, palpitations or syncope Resp: Denies: dyspnea GI: Denies: abdominal pain, nausea or vomiting : Denies: flank pain, dysuria, urinary frequency or urinary urgency Skin/Breast: Denies: rash or pruritus PFSH ED PFSH: Medical History CAD (coronary artery disease) ST elevation (STEMI) myocardial infarction Family History Grandmother CAD (coronary artery disease) Grandfather CAD (coronary artery disease) Denies family history of Diabetes Chronic kidney disease (CKD) Lung disease Cancer Hypertension Stroke Social History Smoking and tobacco status: never smoked Alcohol intake: never Adopted: No Caregiver/support person: No Lives independently: No Household members: spouse and children service: Yes status: Retired branch: [employer] Assignments: Outside [facility] ([facility]) Known or Potential Exposure: Environmental Toxins and Infectious Diseases Current occupational status: employed Sexually active: Yes Current gender identity: Male Physical Exam Const: COMMON NORMALS: no acute distress GENERAL APPEARANCE: cooperative and comfortable ORIENTATION/CONSCIOUSNESS: Yes awake, Yes oriented to person, Yes oriented to place and Yes oriented to time HENMT: COMMON NORMALS: normocephalic, atraumatic and hearing grossly normal bilaterally HEAD & SCALP: normocephalic and atraumatic Resp: COMMON NORMALS: normal respiratory effort, No retractions, No use of accessory muscles and clear to auscultation bilaterally AUSCULTATION: clear to auscultation bilaterally Cardio: COMMON NORMALS: regular rate, regular rhythm and No murmurs present (Cardio) RATE: regular rate RHYTHM: regular rhythm GI: COMMON NORMALS: Soft to palpation and No hepatosplenomegaly present AUSCULTATION: Yes normoactive bowel sounds PALPATION: Yes Soft to palpation, No Tenderness to palpation present (GI), No Guarding due to palpation present (GI) and Yes No hepatosplenomegaly present Extremity: COMMON NORMALS: normal to inspection, capillary refill normal, no clubbing, cyanosis or edema, no calf tenderness and no pedal edema Neuro: SENSORIUM/ORIENTATION: Yes oriented to person, Yes oriented to place and Yes oriented to time Skin: COMMON NORMALS: no rashes or lesions noted GENERAL SKIN EXAM: no rashes or lesions noted Course Vital Signs: Vital signs: Vital Signs Temperature 98.2 F 06/19/22 15:30 Pulse Rate 78 06/19/22 19:12 Respiratory Rate 20 H 06/19/22 19:12 Blood Pressure 119/88 06/19/22 19:12 Pulse Oximetry 95 06/19/22 19:12 Oxygen Delivery Me thod 06/19/22 19:07 MDM - Chest Pain Medical Decision Making Care signed out to Dr. Sands at change of shift. See final notes for diagnosis and disposition. Patient presents here with chest pain his initial repeat troponins are normal EKG is normal he is pain-free here. He is stable for discharge at this time he is to follow-up with PCP in 2 to 4 days and return if worsening he understands agrees to plan. Medical Records I reviewed the patient's medical records. Lab Data I reviewed the patient's lab results. 06/19/22 15:58 06/19/22 15:58 Radiology Impressions Chest X-Ray 06/19/22 15:29 IMPRESSION: No acute findings. Laboratory Results WBC 4.0 10^3/uL (4.0-10.0) 06/19/22 15:58 RBC 5.52 10^6/uL (4.1-5.3) H 06/19/22 15:58 Hgb 17.1 g/dL (11.7-16.6) H 06/19/22 15:58 Hct 49.2 % (42.0-52.0) 06/19/22 15:58 MCV 89.1 fl (80-94) 06/19/22 15:58 MCH 31.0 pg (28.0-34.0) 06/19/22 15:58 MCHC 34.8 g/dL (30.0-36.0) 06/19/22 15:58 RDW 12.7 % (12.1-15.1) 06/19/22 15:58 Plt Count 190 10^3/cmm (130-400) 06/19/22 15:58 MPV 10.1 fL (7.4-10.4) 06/19/22 15:58 Neut % (Auto) 61.7 % 06/19/22 15:58 Lymph % (Auto) 25.3 % 06/19/22 15:58 [place] % (Auto) 11.6 % 06/19/22 15:58 Eos % (Auto) 0.8 % 06/19/22 15:58 Baso % (Auto) 0.3 % 06/19/22 15:58 Neut # (Auto) 2.45 10^3/uL (1.8-7.7) 06/19/22 15:58 Lymph # (Auto) 1.0 10^3/uL (0.8-4.8) 06/19/22 15:58 [place] # (Auto) 0.5 10^3/uL (0.2-0.9) 06/19/22 15:58 Eos # (Auto) 0.0 10^3/uL (0.0-0.8) 06/19/22 15:58 Baso # (Auto) 0.0 10^3/uL (0.0-0.1) 06/19/22 15:58 Nucleated RBC % (auto) 0 % 06/19/22 15:58 Nucleated RBCs # 0.0 /100WBC 06/19/22 15:58 Sodium 135 mmol/L (136-145) L 06/19/22 15:58 Potassium 3.7 mmol/L (3.5-5.1) 06/19/22 15:58 Chloride 101 mmol/L (98-107) 06/19/22 15:58 Carbon Dioxide 20 mmol/L (22-29) L 06/19/22 15:58 Anion Gap 17.7 (5-19) 06/19/22 15:58 BUN 20 mg/dL (6-20) 06/19/22 15:58 Creatinine 0.9 mg/dL (0.7-1.2) 06/19/22 15:58 GFR Calculation 90.1 mL/min (90-130) 06/19/22 15:58 Glucose 140 mg/dL (65-115) H 06/19/22 15:58 Calculated Osmolality 285 mOsm/kg (285-295) 06/19/22 15:58 Calcium 9.0 mg/dL (8.5-10.5) 06/19/22 15:58 Total Bilirubin 0.9 mg/dL (0.15-1.2) 06/19/22 15:58 AST 48 U/L (0-40) H 06/19/22 15:58 ALT 62 U/L (0-41) H 06/19/22 15:58 Alkaline Phosphatase 99 U/L (40-130) 06/19/22 15:58 Troponin T Baseline 6 ng/L (0-15) 06/19/22 15:58 Troponin T 120 Minute 6.00 ng/L (0-15) 06/19/22 18:09 Delta Troponin T 0 ABS# (0-10) 06/19/22 18:09 NT-Pro-B Natriuret Pep 74 pg/mL (0-125) 06/19/22 15:58 Total Protein 8.0 g/dL (6.6-8.7) 06/19/22 15:58 Albumin 4.1 g/dL (3.5-5.2) 06/19/22 15:58 Globulin 3.9 g/dL (1.3-4.6) 06/19/22 15:58 Lipase 41 U/L (13-60) 06/19/22 15:58 Discharge Plan Discharge Patient Disposition: Home Clinical Impression: Chest pain Condition: Stable Prescriptions: No Action Brilinta 90 mg tablet 90 mg PO BID Qty: 180 3RF lisinopril 5 mg tablet 5 mg PO DAILY Qty: 90 3RF metoprolol tartrate 25 mg tablet 12.5 mg PO BID Qty: 90 3RF nitroglycerin 0.4 mg tablet, sublingual 0.4 mg sublingual Q5M PRN (Reason: chest pain) Qty: 25 6RF Rx Instructions: do not exceed 3 doses per episode Lipitor 80 mg tablet 80 mg PO QPM aspirin 81 mg Tablet,Delayed Release (Dr/Ec) 81 mg PO DAILY cholecalciferol (vitamin D3) [Vitamin D3] 50 mcg (2,000 unit) Tablet 50 mcg PO DAILY Discharge Orders: Discharge ED (Routine); Ordered 06/19/22 Ordered By: Aly Sands Referrals: Randall Boss DO [Primary Care Provider] - Discharge Diet: Advance as tolerated Discharge Activity: Resume usual activity Patient Instructions: Chest Pain (ED) Coding Level of Care Code ED Program Advisor for Chg Fwd Documented by User: Aly Sands MD 06/19/22 19:16 HPI - Chest Pain General: Chief Complaint: Chest Pain Stated Complaint: heart pt, chest pain Time Seen by Provider: 06/19/22 15:35 PFSH ED PFSH: Medical History CAD (coronary artery disease) ST elevation (STEMI) myocardial infarction Family History Grandmother CAD (coronary artery disease) Grandfather CAD (coronary artery disease) Denies family history of Diabetes Chronic kidney disease (CKD) Lung disease Cancer Hypertension Stroke Social History (Reviewed 06/19/22 @ 15:50 by WINNIE Jansen Smoking and tobacco status: never smoked Alcohol intake: never Adopted: No Caregiver/support person: No Lives independently: No Household members: spouse and children service: Yes status: Retired branch: [employer] Assignments: Outside [facility] ([facility]) Known or Potential Exposure: Environmental Toxins and Infectious Diseases Current occupational status: employed Sexually active: Yes Current gender identity: Male Course Vital Signs: Vital signs: Vital Signs Temperature 98.2 F 06/19/22 15:30 Pulse Rate 78 06/19/22 19:12 Respiratory Rate 20 H 06/19/22 19:12 Blood Pressure 119/88 06/19/22 19:12 Pulse Oximetry 95 06/19/22 19:12 Oxygen Delivery Me thod 06/19/22 19:07 MDM - Chest Pain Medical Decision Making Patient presents here with chest pain his initial repeat troponins are normal EKG is normal he is pain-free here. He is stable for discharge at this time he is to follow-up with PCP in 2 to 4 days and return if worsening he understands agrees to plan. Lab Data 06/19/22 15:58 06/19/22 15:58 Radiology Impressions Chest X-Ray 06/19/22 15:29 IMPRESSION: No acute findings. Laboratory Results WBC 4.0 10^3/uL (4.0-10.0) 06/19/22 15:58 RBC 5.52 10^6/uL (4.1-5.3) H 06/19/22 15:58 Hgb 17.1 g/dL (11.7-16.6) H 06/19/22 15:58 Hct 49.2 % (42.0-52.0) 06/19/22 15:58 MCV 89.1 fl (80-94) 06/19/22 15:58 MCH 31.0 pg (28.0-34.0) 06/19/22 15:58 MCHC 34.8 g/dL (30.0-36.0) 06/19/22 15:58 RDW 12.7 % (12.1-15.1) 06/19/22 15:58 Plt Count 190 10^3/cmm (130-400) 06/19/22 15:58 MPV 10.1 fL (7.4-10.4) 06/19/22 15:58 Neut % (Auto) 61.7 % 06/19/22 15:58 Lymph % (Auto) 25.3 % 06/19/22 15:58 [place] % (Auto) 11.6 % 06/19/22 15:58 Eos % (Auto) 0.8 % 06/19/22 15:58 Baso % (Auto) 0.3 % 06/19/22 15:58 Neut # (Auto) 2.45 10^3/uL (1.8-7.7) 06/19/22 15:58 Lymph # (Auto) 1.0 10^3/uL (0.8-4.8) 06/19/22 15:58 [place] # (Auto) 0.5 10^3/uL (0.2-0.9) 06/19/22 15:58 Eos # (Auto) 0.0 10^3/uL (0.0-0.8) 06/19/22 15:58 Baso # (Auto) 0.0 10^3/uL (0.0-0.1) 06/19/22 15:58 Nucleated RBC % (auto) 0 % 06/19/22 15:58 Nucleated RBCs # 0.0 /100WBC 06/19/22 15:58 Sodium 135 mmol/L (136-145) L 06/19/22 15:58 Potassium 3.7 mmol/L (3.5-5.1) 06/19/22 15:58 Chloride 101 mmol/L (98-107) 06/19/22 15:58 Carbon Dioxide 20 mmol/L (22-29) L 06/19/22 15:58 Anion Gap 17.7 (5-19) 06/19/22 15:58 BUN 20 mg/dL (6-20) 06/19/22 15:58 Creatinine 0.9 mg/dL (0.7-1.2) 06/19/22 15:58 GFR Calculation 90.1 mL/min (90-130) 06/19/22 15:58 Glucose 140 mg/dL (65-115) H 06/19/22 15:58 Calculated Osmolality 285 mOsm/kg (285-295) 06/19/22 15:58 Calcium 9.0 mg/dL (8.5-10.5) 06/19/22 15:58 Total Bilirubin 0.9 mg/dL (0.15-1.2) 06/19/22 15:58 AST 48 U/L (0-40) H 06/19/22 15:58 ALT 62 U/L (0-41) H 06/19/22 15:58 Alkaline Phosphatase 99 U/L (40-130) 06/19/22 15:58 Troponin T Baseline 6 ng/L (0-15) 06/19/22 15:58 Troponin T 120 Minute 6.00 ng/L (0-15) 06/19/22 18:09 Delta Troponin T 0 ABS# (0-10) 06/19/22 18:09 NT-Pro-B Natriuret Pep 74 pg/mL (0-125) 06/19/22 15:58 Total Protein 8.0 g/dL (6.6-8.7) 06/19/22 15:58 Albumin 4.1 g/dL (3.5-5.2) 06/19/22 15:58 Globulin 3.9 g/dL (1.3-4.6) 06/19/22 15:58 Lipase 41 U/L (13-60) 06/19/22 15:58 Discharge Plan Discharge Patient Disposition: Home Clinical Impression: Chest pain Condition: Stable Prescriptions: No Action Brilinta 90 mg tablet 90 mg PO BID Qty: 180 3RF lisinopril 5 mg tablet 5 mg PO DAILY Qty: 90 3RF metoprolol tartrate 25 mg tablet 12.5 mg PO BID Qty: 90 3RF nitroglycerin 0.4 mg tablet, sublingual 0.4 mg sublingual Q5M PRN (Reason: chest pain) Qty: 25 6RF Rx Instructions: do not exceed 3 doses per episode Lipitor 80 mg tablet 80 mg PO QPM aspirin 81 mg Tablet,Delayed Release (Dr/Ec) 81 mg PO DAILY cholecalciferol (vitamin D3) [Vitamin D3] 50 mcg (2,000 unit) Tablet 50 mcg PO DAILY Discharge Orders: Discharge ED (Routine); Ordered 06/19/22 Ordered By: Aly Sands Referrals: Randall Boss DO [Primary Care Provider] - Discharge Diet: Advance as tolerated Discharge Activity: Resume usual activity Patient Instructions: Chest Pain (ED) Coding Level of Care Code ED Program Advisor for Chg Fwjuliocesar
[2022-06-19 16:08] LABS: Basophils % 0.3 %; Eosinophils % 0.8 %; Hematocrit 49.2 % (42.0-52.0); Hemoglobin 17.1 g/dL (11.7-16.6); Lymphocytes % 25.3 %; Mean Corpuscular HGB Conc 34.8 g/dL (30.0-36.0); Mean Corpuscular Volume 89.1 fl (80-94); Mean Platelet Volume 10.1 fL (7.4-10.4); Monocytes # 0.5 10^3/uL (0.2-0.9); Monocytes % 11.6 %; Neutrophils # 2.45 10^3/uL (1.8-7.7); Neutrophils % 61.7 %; Nucleated Red Blood Cells % 0 %; Platelet Count 190 10^3/cmm (130-400); Red Blood Count 5.52 10^6/uL (4.1-5.3); Red Cell Distribution Width 12.7 % (12.1-15.1)
[2022-06-19 16:33] LABS: Troponin(5th) Baseline 6 ng/L (0-15)
[2022-06-19 16:38] LABS: Alanine Aminotransferase 62 U/L (0-41); Albumin Level 4.1 g/dL (3.5-5.2); Alkaline Phosphatase 99 U/L (40-130); Aspartate Amino Transferase 48 U/L (0-40); Blood Urea Nitrogen 20 mg/dL (6-20); Carbon Dioxide 20 mmol/L (22-29); Chloride 101 mmol/L (98-107); Globulin 3.9 g/dL (1.3-4.6); Glomerular Filtration Rate 90.1 mL/min (90-130); Glucose 140 mg/dL (65-115); Lipase 41 U/L (13-60); NT Pro B Type Natriuretic Pept 74 pg/mL (0-125); Osmolality Calculated 285 mOsm/kg (285-295); Sodium 135 mmol/L (136-145); Total Bilirubin 0.9 mg/dL (0.15-1.2)
[2022-06-19 16:40] LABS: Anion Gap 17.7 (5-19); Potassium 3.7 mmol/L (3.5-5.1)
--- NOTE | 2022-06-19 16:56 | PC.NURSE ---
PT PLACED ON CONTINUOUS NIBP, SPO2, AND CM
--- NOTE | 2022-06-19 17:29 | ECG_ITS ---
[facility] Test Date: 2022-06-19 Pat Name: Roland Del Angel Department: Room: Gender: Male Building Mover: : 1975 Requested By: Kit Espinal Order Number: [id number] Laura MD: Gavin Kruse M.D. Measurements Intervals [place] Rate: 83 P: 24 DE: 182 QRS: -13 QRSD: 97 T: -1 QT: 375 QTc: 443 Interpretive Statements SINUS RHYTHM POSSIBLE LATERAL MYOCARDIAL INFARCTION , PROBABLY OLD [30 ms Q WAVE IN I/aVL/V5/V6] Compared to ECG 06/19/2022 15:30:07 No significant changes Electronically Signed On 06-19-2022 22:30:16 BOILERHOUSE MECHANIC by Gavin Kruse M.D. [id number]
[2022-06-19 19:00] LABS: Troponin 5 2HR Delta 0 ABS# (0-10)
== END 2022-06-19 19:15 | disposition home or self-care (01) ==
PROVIDERS: Emergency Medicine; Emergency Provider Emergency Medicine; PCP Family Medicine
DX: R07.9 Chest pain, unspecified (principal); Z79.82 Long term (current) use of aspirin; I25.10 Atherosclerotic heart disease of native coronary artery without angina pectoris; I25.2 Old myocardial infarction
CPT/HCPCS: 71045; 80053; 83690; 83880; 84484; 85025; 93005; 99285

== ENCOUNTER → 2022-10-03 11:33 | Outpatient (BNVA) | payer OTHER, SELFPAY | PROVIDERS: PCP Family Medicine; Visit Provider Registered Nurse | DX: I10 Essential (primary) hypertension (principal); Z13.1 Encounter for screening for diabetes mellitus; E78.5 Hyperlipidemia, unspecified | CPT/HCPCS: 80053; 80061; 83036; 85025 ==

== ENCOUNTER 2023-01-27 11:59 | Outpatient (CLI) | payer OTHER, SELFPAY ==
--- NOTE | 2023-01-27 12:08 | XR_ITS ---
WS: [id number] EXAMINATION: XR thoracic spine 3V* [id number] REASON FOR EXAM: M54.6 - Pain in thoracic spine COMPARISON: None available. ORDER DATE: 01/27/2023 12:16 PM FINDINGS: Generalized degenerative spinal changes are seen including moderate degenerative endplate changes and marginal osteophytes. There is moderate narrowing of the intervertebral disc spaces. There is no briseida dence of acute compression deformities or spondylolisthesis. IMPRESSION: MODERATE DEGENERATIVE SPINE CHANGE AND SPONDYLOSIS.
--- NOTE | 2023-01-27 12:08 | XR_ITS ---
WS: [id number] EXAMINATION: XR lumbar spine 2-3V* [id number] L-SPINE : 3 views REASON FOR EXAM: M54.40 - Lumbago with sciatica, unspecified side COMPARISON: None available. ORDER DATE: 01/27/2023 12:16 PM FINDINGS: The lumbar vertebral bodies and the disc spaces are normal in width. In the lumbar vertebra, there i s no evidence of compression deformities or spondylolisthesis. IMPRESSION: UNREMARKABLE LUMBAR SPINE STUDY
== END 2023-01-27 12:00 | disposition home or self-care (01) ==
PROVIDERS: PCP Registered Nurse; Visit Provider Registered Nurse
DX: M54.40 Lumbago with sciatica, unspecified side (principal); G89.29 Other chronic pain; M47.814 Spondylosis without myelopathy or radiculopathy, thoracic region
CPT/HCPCS: 72072; 72100

== ENCOUNTER → 2023-02-02 11:07 | Outpatient (BNVA) | payer OTHER, SELFPAY | PROVIDERS: PCP Registered Nurse; Visit Provider Registered Nurse | DX: I10 Essential (primary) hypertension (principal); R53.83 Other fatigue; R73.03 Prediabetes; M47.814 Spondylosis without myelopathy or radiculopathy, thoracic region; I25.10 Atherosclerotic heart disease of native coronary artery without angina pectoris; R07.89 Other chest pain; I77.89 Other specified disorders of arteries and arterioles; M19.019 Primary osteoarthritis, unspecified shoulder | CPT/HCPCS: 80053; 80061; 83036; 83721; 84402; 84403; 84443 ==

== ENCOUNTER → 2023-02-12 16:04 | Outpatient (BNVA) | payer OTHER, SELFPAY | PROVIDERS: PCP Registered Nurse; Referring Provider Registered Nurse; Visit Provider Internal Medicine Cardiovascular Disease | DX: R07.9 Chest pain, unspecified (principal) | CPT/HCPCS: 93005 ==

== ENCOUNTER 2023-03-03 08:12 | Outpatient (CLI) | payer OTHER, SELFPAY ==
--- NOTE | 2023-03-03 08:45 | MR_ITS ---
WS: [id number] MRI THORACIC SPINE WITHOUT CONTRAST TECHNIQUE: Sagittal T1, T2 and STIR imaging. Axial T2 imaging. Noncontrast imaging obtained. 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 COMPARISON: None. FINDINGS: Mild thoracic curve. Mild thoracic kyphosis. No acute compression. No high-grade central canal stenos is. Cord signal is normal. A few Schmorl's nodes in the mid and lower thoracic spine. Tiny central pr otrusions at T2-3, T3-4, T7-8, and T9-10 without significant central canal stenosis. Tiny RIGHT parac entral protrusion T11-T12 and tiny LEFT paracentral protrusion T12-L1. Moderate facet arthropathy lower thoracic spine. Mild RIGHT T10-11, bilateral T11-12 bony foraminal narrowing. Mild RIGHT T2-3 bony foraminal narrowin g. Normal caliber thoracic aorta. Adrenal glands are normal. 12 mm RIGHT renal cyst. IMPRESSION: 1. Mild thoracic curve. Mild thoracic kyphosis. No acute compression fractures. 2. No high-grade central canal stenosis. Cord signal is normal. 3. Few tiny central protrusions described above. 4. Mild RIGHT T10-11, bilateral T11-12 bony foraminal narrowing. Mild RIGHT T2-3 bony foraminal narr owing. 5. Moderate facet arthropathy lower thoracic spine.
== END 2023-03-03 08:13 | disposition home or self-care (01) ==
LOC: RAD 08:12
PROVIDERS: PCP Registered Nurse; Visit Provider Registered Nurse
DX: M47.814 Spondylosis without myelopathy or radiculopathy, thoracic region (principal); M40.204 Unspecified kyphosis, thoracic region; N28.1 Cyst of kidney, acquired
CPT/HCPCS: 72146

== ENCOUNTER 2024-07-29 12:00 | Outpatient (CLI) | payer OTHER, SELFPAY ==
--- NOTE | 2024-07-29 12:07 | XR_ITS ---
WS: [id number] XR shoulder RT min 2V* [id number] REASON FOR EXAM: M75.41 - Impingement syndrome of right shoulder FINDINGS: No fracture or focal bone lesion. Acromioclavicular joint is intact with mild narrowing and mild marginal sclerosis. Glenohumeral joint is not optimally visualized but appears to be moderately narrowed with moderate subchondral sclerosis in the glenoid. There is globular amorphous calcification overlying the humeral head. They appear to be located posteriorly. Possibly calcific tendinosis of the infraspinatus tendon, HADD. XR/XR shoulder RT min 2V* [id number] IMPRESSION: Mild osteoarthritis in the acromioclavicular joint. Moderate osteoarthritis in the glenohumeral joint. Posterior calcifications as described above.
== END 2024-07-29 12:01 | disposition home or self-care (01) ==
PROVIDERS: PCP Registered Nurse; Visit Provider Registered Nurse
DX: M75.41 Impingement syndrome of right shoulder (principal); M19.011 Primary osteoarthritis, right shoulder; R93.7 Abnormal findings on diagnostic imaging of other parts of musculoskeletal system
CPT/HCPCS: 73030

== ENCOUNTER 2024-08-26 07:49 | Outpatient (CLI) | payer OTHER, SELFPAY ==
--- NOTE | 2024-08-26 08:00 | MRR_ITS ---
PROCEDURE INFORMATION: Exam: MR Right Upper Extremity Joint Without Contrast; Shoulder Exam date and time: 08/26/2024 8:09 AM Age: 49 years old Clinical indication: Pain; Shoulder; Right; Additional info: Right shoulder pain. No history of recent trauma or surgery is provided. TECHNIQUE: Imaging protocol: Magnetic resonance imaging of the right upper extremity without contrast. Exam focused on the shoulder. 180image(s) are provided. COMPARISON: CR XR shoulder RT min 2V* [id number] 07/29/2024 12:[address] or MRI is currently available. FINDINGS: Bones/joints: There is some motion artifact present. No diffuse acute abnormal marrow signal intensity is appreciated. There is some hypertrophic degeneration, signal of the acromioclavicular junction. There are subchondral cystic changes present. There is some trace joint fluid present. There is some subacromial narrowing and spurring present. There is some trace subacromial and subdeltoid fluid present. Glenoid labrum: There is some labral degeneration, edge fraying present with anterior predominance. There is some subtle oblique fluid signal which could also represent some fissuring, subtle tearing on these non arthrogram views. There is some anterior adjacent ligamentous averaging. Supraspinatus tendon: Supraspinatus demonstrates some tendinopathy along with the articular surface fraying distally. There is some focal signal about the anterior aspect suggestive of distal focal full-thickness tearing. Infraspinatus tendon: There are some calcifications of the lateral soft tissues, infraspinatus level predominance similar. Infraspinatus demonstrates tendinopathy with articular surface partial-thickness tearing. There is some localized signal distally suggestive of focal full-thickness tearing along with the adjacent calcifications and subchondral cystic changes of the humeral head. Subscapularis tendon: Subscapularis demonstrates some tendinopathy along with some distal articular surface partial-thickness tearing with some subtle peritendinous fluid. Teres minor tendon: Teres minor appears grossly intact with some tendinopathy appearance distally. Tendon of biceps brachii: The long head biceps course appears maintained overall of the bicipital groove. There is some tendinopathy appearance of the superior aspect along with subtle irregularity of the superior labral complex. Coracoclavicular ligament: The coracoclavicular ligamentous components appear grossly intact overall. Glenohumeral ligaments: There is some subtle thickening of the joint capsule, ligamentous components with the anterior superior predominance suggestive of sprain related sequela. Soft tissues: No subcutaneous fluid collections are appreciated. MR/MR shoulder RT wo con* [id number] IMPRESSION: 1. There are some tendinopathy, partial-thickness predominance tearing changes of the supraspinatus and infraspinatus with no complete tearing or muscular retraction appreciated. 2. There is subacromial narrowing and spurring contributing to indentation of the myotendinous junction of the supraspinatus predominantly. 3. There is some tendinopathy of the long head biceps tendon along with some subtle irregularity of the superior labral complex suggestive of some subtle associated labral tearing.
== END 2024-08-26 07:50 | disposition home or self-care (01) ==
LOC: RAD 07:52
PROVIDERS: PCP Registered Nurse; Visit Provider Specialist
DX: M75.41 Impingement syndrome of right shoulder (principal); R93.89 Abnormal findings on diagnostic imaging of other specified body structures; M79.89 Other specified soft tissue disorders
CPT/HCPCS: 73221

== ENCOUNTER → 2025-02-08 08:54 | Outpatient (BNVA) | payer OTHER, SELFPAY | PROVIDERS: PCP Registered Nurse; Visit Provider Specialist | DX: M19.011 Primary osteoarthritis, right shoulder (principal); M75.111 Incomplete rotator cuff tear or rupture of right shoulder, not specified as traumatic; M67.911 Unspecified disorder of synovium and tendon, right shoulder | CPT/HCPCS: 73030; 99214 ==

== ENCOUNTER 2025-02-23 10:13 | Outpatient (CLI) | payer OTHER, SELFPAY ==
--- NOTE | 2025-02-23 10:18 | US_ITS ---
WS: [id number] RENAL ULTRASOUND HISTORY: KIDNEY STONE ON THE R SIDE COMPARISON: None available. TECHNIQUE: 2-D and color Doppler imaging of the kidney submitted. Right kidney: 12.0 cm x 5.8 cm x 6.9 cm. Cortex: 1.3 cm Normal echogenicity with no hydronephrosis or mass. Left kidney: 12.9 cm x 6.0 cm x 5.5 cm. Cortex: 2.0 cm Normal echogenicity with no hydronephrosis or mass. Aorta: Normal. Urinary Bladder: Normal distention. US/US renal BI* [id number] IMPRESSION: Normal renal ultrasound.
== END 2025-02-23 10:14 | disposition home or self-care (01) ==
LOC: RAD 10:14
PROVIDERS: PCP Registered Nurse; Visit Provider Nurse Practitioner
DX: N20.0 Calculus of kidney (principal)
CPT/HCPCS: 76770

== ENCOUNTER 2025-02-24 07:52 | Outpatient (CLI) | payer OTHER, SELFPAY ==
--- NOTE | 2025-02-24 07:58 | MR_ITS ---
WS: [id number] MRI RIGHT SHOULDER ARTHROGRAM TECHNIQUE: Sagittal T2, coronal T1, T2 and proton density imaging. Axial gradient PDE imaging. CLINICAL INFORMATION: M19.011 - Primary osteoarthritis, right shoulder COMPARISON: None. FINDINGS: Advanced degenerative arthritis at the AC joint with fluid and edema. Mild downsloping the acromion with subacromial spurring. This is advanced for patient this age. Impingement on the underlying rotator cuff. Tendinopathy supraspinatus and infraspinatus. Small undersurface and insertional tears of both the supraspinatus and infraspinatus. No tendon retraction. Again seen are the amorphous calcifications at the infraspinatus insertion at the greater tuberosity. Teres minor is intact. Subscapularis tendon is intact. Biceps tendon appears intact within the bicipital groove. Tendinopathy intra-articular biceps tendon. Biceps labral anchor appears intact. SLAP tear with anterior posterior extension extending to the biceps labral anchor. Moderate degenerative narrowing of the glenohumeral articulation with hypertrophic changes and subchondral sclerosis. Edema in the rotator interval with visually small shoulder capsule. Thickening along the axillary recess. Findings suspicious for adhesive capsulitis. MR/MR shoulder RT wo/w con [id number] IMPRESSION: 1. Degenerative change AC joint advanced for patient this age with fluid and e leon. Subacromial spurring impinges the underlying rotator cuff. 2. Tendinopathy supraspinatus and infraspinatus with small undersurface and in trasubstance tears at the insertion. No tendon retraction. 3. Large amorphus calcifications at the infraspinatus insertion along the grea ter tuberosity. 4. SLAP tear extends to the biceps labral anchor which appears intact. 5. Tendinopathy intra-articular biceps tendon. 6. Evidence of adhesive capsulitis described above.
--- NOTE | 2025-02-24 07:58 | IR_ITS ---
WS: [id number] SHOULDER ARTHROGRAM RIGHT Fluoroscopic guided right shoulder arthrogram CLINICAL INFORMATION: PAIN/CALCIFICATION/OSTEOARTHRITIS OF R SHOULDER PROCEDURE: The procedure including risks, benefits and complications were discussed with the patient, who agreed to proceed. Using sterile technique, the patient was prepped and draped in the usual sterile fashion. After 1% lidocaine injection using fluoroscopic guidance, a 22-gauge spinal needle was advanced into the glenohumeral joint. Approximately 13 ml of a solution containing 5 ml normal saline, 10 ml Omnipaque 240, 5 ml 1% lidocaine, and 0.1 ml gadolinium was administered. No immediate complications. FLUOROSCOPY TIME: 1min [id number] # of spot films: 3 IR/IR arthrogram shoulderRT [id number] IMPRESSION: Uncomplicated fluoroscopic-guided right shoulder arthrogram. MRI to follow.
[2025-02-24] MEDS: iohexol 240 mg/mL 50 mL Btl 20 ML INTRA-ARTI (09:44)
[2025-02-24] MEDS: gadobenate dimeglumine 20 mL vial 3 ML IV (10:31)
== END 2025-02-24 07:53 | disposition home or self-care (01) ==
PROVIDERS: PCP Registered Nurse; Visit Provider Specialist
DX: M19.011 Primary osteoarthritis, right shoulder (principal); M75.41 Impingement syndrome of right shoulder; M67.813 Other specified disorders of tendon, right shoulder; S43.432A Superior glenoid labrum lesion of left shoulder, initial encounter; X58.XXXA Exposure to other specified factors, initial encounter; R93.7 Abnormal findings on diagnostic imaging of other parts of musculoskeletal system; M89.311 Hypertrophy of bone, right shoulder; R60.0 Localized edema
CPT/HCPCS: 23350; 73223; 77002; A9577; J9999; Q9966

== ENCOUNTER 2025-03-08 18:25 | Emergency (ER) | payer OTHER, SELFPAY ==
--- OUTSIDE RECORDS SUMMARY | 2025-03-02 05:30 | XMS_ITS ---
Author Organization [facility] Address [address] [place] [address] Care Team Providers Care Animal Impersonator Name Role Phone [facility] Cailin RODRIGUEZ Primary Care Provid er Unavailable Chung Patten Unavailable [phone] Reason For Referral Reason evaluate and treat w ith physical therapy for low back pain BIW-TIW x 6-8 weeks Diagnosis 1 Herniation of left s jesús of L4-L5 intervertebral disc (M51.26) Diagnosis 2 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) Diagnosis 3 Lumbar radiculopathy (M54.16) Diagnosis 4 Numbness (R20.0) Diagnosis 5 Lumbar facet arthrop athy (M12.88) Diagnosis 6 Low back pain (M54.5 0) Referral Organization [facility] [place] Referring Provider First Name Chung Referring Provider Last Name Sandor Referring Provider Speciality Neurosurge jesse Referred Provider Physical Therapy [facility] Referred Provider Specialty Physical The rapist Referral Priority Routine Reason evaluate and treat C omprehensive LESI - RFS requested Diagnosis 1 Herniation of left s jesús of L4-L5 intervertebral disc (M51.26) Diagnosis 2 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) Diagnosis 3 Lumbar radiculopathy (M54.16) Diagnosis 4 Numbness (R20.0) Diagnosis 5 Lumbar facet arthrop athy (M12.88) Diagnosis 6 Low back pain (M54.5 0) Referral Organization [facility] [place] Referring Provider First Name Chung Referring Provider Last Name Sandor Referring Provider Speciality Neurosurge jesse Referred Provider Sterling Ramos Referred Provider Specialty Intervention al Pain Medicine Referral Priority Routine REASON FOR VISIT low back pain Problems Problem Type SNOMED Code ICD Code Onset Dates Problem Status W/U Status Risk Notes Problem Displacement of lumbar intervertebral disc without myelopathy (20020131) Herniation of left side of L4-L5 intervertebral disc (M51.26) Active confirmed Problem Lumbar radiculopathy (797848561) Lumbar radiculopathy (M54.16) Active confirmed Problem Arthropathy of lumbar facet joint (246895894) Lumbar facet arthropathy (M12.88) Active confirmed Problem Degeneration of intervertebral disc of lumbar region with discogenic back pain and lower extremity pain (M51.362) Active confirmed Vital Signs Temperature 97.6 degrees Fahrenheit 03/02/20 25 Blood pressure systolic 136 mm Hg 03/02/20 25 Blood pressure diastolic 85 mm Hg 025 Heart Rate 85 /min 03/02/2025 Respiratory Rate 18 /min 03/02/2025 Height 72 in 03/02/2025 Weight 250 lbs 03/02/2025 BMI 33.9 kg/m2 03/02/2025 Oximetry 97 % 03/02/2025 Height-cm 182.88 cm 03/02/2025 Weight-kg 113.4 kg 03/02/2025 Encounters Encounter Location Date Provider Diagnosis [facility] [place] [address] [place] [address] 03/02/2025 Chnug Hernandezley Herniation of left side of L4-L5 intervertebral disc M51.26 ; Lumbar radiculopathy M54.16 ; Degeneration of intervertebral disc of lumbar region with discogenic back pain and lower extremity pain M51.362 ; Lumbar facet arthropathy M12.88 ; Numbness R20.0 and Low back pain M54.50 Assessments Encounter Date Diagnosis (ICD Code) Assessment Notes Treatment Notes Treatment Clinical Notes Section Notes 03/02/2025 Herniation of left side of L4-L5 intervertebral disc (ICD-10 - M51.26) Imaging, symptoms and clinical findings were reviewed. MRI L spine reveals good alignment. Disc height good. L3-4 disc bulge, facet arthropathy. L4-5 Disc herniation left, degenerative disc disease, facet arthropathy. L5-S1 facet arthropathy. He has low back pain that radiates to left lower extremity with left thigh numbness. I believe the bulk of his symptoms are coming from herniation at L4-5. We discussed treatment options. He may leave things as they are and continue symptomatic treatment. Other options are physical therapy and/or injections. Surgery would be L4-5 MISDISC. The surgery was described to the patient along with risks of surgery and recovery expectations. Questions were asked and answered to the patient's satisfaction. I recommend starting with physical therapy and injections. If unable to get sustained improvement in symptoms, call and make appointment. Patient is in agreement. ROS reviewed I Linnea Lopez RN am scribing for, and in the presence of Chung Patten MD. I, Chung Patten, personally performed the services described in this documentation, as scribed by Linnea Lopez RN in my presence, and it is both accurate and complete. 03/02/2025 Lumbar radiculopathy (ICD-10 - M54.16) 03/02/2025 Degeneration of intervertebral disc of lumbar region with discogenic back pain and lower extremity pain (ICD-10 - M51.362) 03/02/2025 Lumbar facet arthropathy (ICD-10 - M12.88) 03/02/2025 Numbness (ICD-10 - R20.0) 03/02/2025 Low back pain (ICD-10 - M54.50) Plan Of Treatment Treatment Notes Assessment Notes Herniation of left side of L 4-L5 intervertebral disc Imaging, symptoms and clinical findings were reviewed. MRI L spine reveals good alignment. Disc height good. L3-4 disc bulge, facet arthropathy. L4-5 Disc herniation left, degenerative disc disease, facet arthropathy. L5-S1 facet arthropathy. He has low back pain that radiates to left lower extremity with left thigh numbness. I believe the bulk of his symptoms are coming from herniation at L4-5. We discussed treatment options. He may leave things as they are and continue symptomatic treatment. Other options are physical therapy and/or injections. Surgery would be L4-5 MISDISC. The surgery was described to the patient along with risks of surgery and recovery expectations. Questions were asked and answered to the patient's satisfaction. I recommend starting with physical therapy and injections. If unable to get sustained improvement in symptoms, call and make appointment. Patient is in agreement. ROS reviewed I Linnea Lopez RN am scribing for, and in the presence of Chung Patten MD. I, Chung Patten, personally performed the services described in this documentation, as scribed by Linnea Lopez RN in my presence, and it is both accurate and complete. Referrals Referral Date Details 03/02/2025 03/02/2025, evaluate and treat with physical therapy for low back pain BIW-TIW x 6-8 weeks, [facility] 03/02/2025 03/02/2025, evaluate and treat Comprehensive LESI - RFS requested, Sterling Ramos Next Appt Details Follow Up: patient to call, Reason: History and Physical Notes * HPI (History of Present Illness) Category Sub-Category Detail Notes Category Not es Provider Note 03/02/25 Romina rose 49-year-old presents as a [facility]. He reports back pain for the past 15 years. Over the past months, the pain has progressively worsened. He has low back pain on the left side that radiates to left lower extremity with numbness in lateral/anterior thigh. He describes the pain as aching and continuous. He rates his pain today as 7/10. Standing, sitting and driving make the pain worse. MRI L spine reveals good alignment. Disc height good. L3-4 disc bulge, facet arthropathy. L4-5 Disc herniation left, degenerative disc disease, facet arthropathy. L5-S1 facet arthropathy. Examination Category Sub-Category Detail Notes Category Not es General Examination GENERAL APPEARANCE: alert, w ell hydrated, uncomfortable due to pain EYES: normal conjunctiva HEART: normal heart rate LUNGS: normal respirations NEUROLOGIC: alert and oriented, cerebellar function normal, cognitive exam grossly normal SKIN: warm and dry EXTREMITIES: MAEW MUSCULOSKELETAL: limited lumbar range of motion, normal gait, no obvious dysfunction or atrophy PSYCH: alert, oriented, cog nitive function intact, cooperative with exam, good eye contact, mood/affect full range, speech clear Consultation Request Notes Referral Date Referring Provider Referred Provider Not es 03/02/2025 Chung [facility] evaluate and treat with physical therapy for low back pain BIW-TIW x 6-8 weeks 03/02/2025 Chung Patten Ryan evaluate and treat Comprehensive LESI - RFS requested Progress Notes * Roland JOHNSON LDOB:[birth year] (49 yo M)Acc No.[id number]:03/02/2025 Progress Notes Patient: Roland Berger Provider: Chris Patten MD :1975 A ge:49 Y S ex:Male Date:03/02/2025 Address:[facility] [address] [id number] Pcp:Cailin Rodney -[facility], [facility] Check Out:11:51 AM SAFE TECHNICIAN Subjective: * Chief Complaints: * 1 . Low back pain. * HPI: P rovider Note: 03/02/25 Pleasant 49-year-old presents as a new patient referred by the [facility] for low back pain. He reports back pain for the past 15 years. Over the past months, the pain has progressively worsened. He has low back pain on the left side that radiates to left lower extremity with numbness in lateral/anterior thigh. He describes the pain as aching and continuous. He rates his pain today as 7/10. Standing, sitting and driving make the pain worse. MRI L spine reveals good alignment. Disc height good. L3-4 disc bulge, facet arthropathy. L4-5 Disc herniation left, degenerative disc disease, facet arthropathy. L5-S1 facet arthropathy. * ROS: G eneral/Constitutional: Good O verall health. D enies C hills. D enies?Fatigue/Tiredness. D enies S noring during sleep. D enies F ever. D enies?Headache. D enies N ight sweats. D enies R ecent weight gain. D enies E xcessive Sleepiness. D enies R ecent weight loss. A llergy/Immunology: Denies N estefani allergies. D enies H ay Fever. D enies R ecurrent Hives. D enies A llergy to Foods. B reast: Denies B reast lump. D enies B reast pain. ? H ematology: Denies E asy bruising. D enies S wollen glands.? O phthalmologic: Denies D ouble Vision. D enies B lurry vision. D enies H istory of Glaucoma. R espiratory: Denies C hronic Cough. D enies S hortness of breath. D enies B reathing problems. D enies C ough. D enies W heezing. D enies B lood in Sputum. D enies P ain with Breathing. D enies C olor Changes in Sputum. C ardiovascular: Denies C hest pain. D enies C yanosis. D enies?Dizziness. D enies D yspnea on exertion. D enies P alpitations. D enies?Swelling in hands/feet. G astrointestinal: Denies B lack/Tarry Stools. D enies A bdominal pain. D enies B lood in stool. D enies C hange in bowel habits. D enies C onstipation. D enies D ecreased appetite. D enies D iarrhea. D enies H eartburn.?Denies N ausea. D enies V omiting. M en Only: Denies T esticular Pain. G enitourinary: Denies B urning Urination. D enies S exual Problems. D enies B lood in urine. D enies F requent urination. D enies U rinary Incontinence. E NT: Admits R inging in the ears. A dmits D ifficulty Hearing. D enies E ar pain. D enies C hronic Sinus Drainage. D enies C hronic Sinus Congestion. D enies F requent Sneezing. D enies M outh Sores. D enies B leeding Gums. D enies B ad Breath. D enies S wollen glands in Neck. D enies?Change in Voice (Hoarse). E ndocrine: Denies P oor Blood Sugar Control. D enies C hange in Hat or Glove Size. D enies C old intolerance. D enies E xcessive thirst. D enies H eat intolerance. M usculoskeletal: Comments S ee [facility] for details. A dmits B ack Pain. A dmits J oint stiffness. A dmits P ainful joints.?Denies S wollen joints. S kin: Denies V aricose Veins. D enies A bnormal Hair or Nails. D enies C hanges in Skin Color. D enies D ry skin. D enies R cynthia. N eurologic: Denies W eakness. C omments S [facility] for details. D enies D izziness. A dmits H eadache. D enies S eizures. D enies?Tremor. P sychiatric: Denies I ncreased Irritability. D enies D ifficulty Concentrating. D enies M mariama Loss/Confusion. D enies N ervousness. D enies?Anxiety. D enies D epression. * Medical History: * Surgical History: * Hospitalization/Major Diagno stic Procedure: * Family History: N o Family History documented.. F amily History Verified.. * Social History: Social History Verified. No Social History documented. * Medications: N one * Allergies: Allergies Verified. Objective: * Vitals: H t: 72 in, Wt:250lbs, Wt-k.4 kg, BMI:33.9Index, Temp:97.6F, BP:136/85mm Hg, HR:85/min, RR:18/min, Oxygen sat %:97%, O2 Source: RA, Pain scale: 7 1-10, Ht- cm: 182.88 cm. * Examination: G eneral Examination: GENERAL APPEARANCE: a lert, well hydrated, uncomfortable due to pain. EYES: n ormal conjunctiva. SKIN: w arm and dry. HEART: n ormal heart rate. LUNGS: n ormal respirations. MUSCULOSKELETAL: l imited lumbar range of motion, normal gait, no obvious dysfunction or atrophy. EXTREMITIES: M AEW. NEUROLOGIC: a lert and oriented, cerebellar function normal, cognitive exam grossly normal. PSYCH: a lert, oriented, cognitive function intact, cooperative with exam, good eye contact, mood/affect full range, speech clear. Assessment: * Assessment: 1. H erniation of left side of L4-L5 intervertebral disc - M51.26 (Primary) 2 .?Lumbar radiculopathy - M54.16 3 . D egeneration of intervertebral disc of lumbar region with discogenic back pain and lower extremity pain - M51.362 4 . L umbar facet arthropathy - M12.88 5 . N umbness - R20.0 6 . L ow back pain - M54.50 Plan: * Treatment: 2. L umbar radiculopathy Referral To:[facility] Physical Therapist Reason:evaluate and treat with physical therapy for low back pain BIW-TIW x 6-8 weeks Referral To:Sterilng Ramos Interventional Pain Medicine Reason:evaluate and treat Comprehensive LESI - RFS requested 3. D egeneration of intervertebral disc of lumbar region with discogenic back pain and lower extremity pain Referral To:[facility] Physical Therapist Reason:evaluate and treat with physical therapy for low back pain BIW-TIW x 6-8 weeks Referral To:Sterling Ramos Interventional Pain Medicine Reason:evaluate and treat Comprehensive LESI - RFS requested 4. L umbar facet arthropathy Referral To:[facility] Physical Therapist Reason:evaluate and treat with physical therapy for low back pain BIW-TIW x 6-8 weeks Referral To:Sterling Ramos Interventional Pain Medicine Reason:evaluate and treat Comprehensive LESI - RFS requested 5. N umbness Referral To:[facility] Physical Therapist Reason:evaluate and treat with physical therapy for low back pain BIW-TIW x 6-8 weeks Referral To:Sterling Ramos Interventional Pain Medicine Reason:evaluate and treat Comprehensive LESI - RFS requested 6. L ow back pain Referral To:[facility] Physical Therapist Reason:evaluate and treat with physical therapy for low back pain BIW-TIW x 6-8 weeks Referral To:Sterling Ramos Interventional Pain Medicine Reason:evaluate and treat Comprehensive LESI - RFS requested * Procedure Codes: 3 079F DIAST BP 80-89 MM HG, 3075F SYST BP GE 130 - 139MM HG * Follow Up: p atient to call Billing Information: * Visit Code: 36789 Office Visit, New Pt., Level 2. * Procedure Codes: 3079F DIAST BP 80-89 MM HG. 3075F SYST BP GE 130 - 139MM HG. * TECHNICIAN Sign off status: Completed true * Provider: Chris Patten MD Date: 05/02/2024 Generated for Printi ng/Saadiag/eTransmitting on: 05/08/2024 06:31 PM SAFE TECHNICIAN
[2025-03-08 18:25] VITALS: BP 142/92; PULSE 59; RESP 18; TEMP 36.4; O2SAT 97
--- NOTE | 2025-03-08 18:28 | ECG_ITS ---
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 Measurements Intervals [place] Rate: 65 P: 21 LA: 181 QRS: -17 QRSD: 94 T: 65 QT: 423 QTc: 442 Interpretive Statements SINUS RHYTHM WITH OCCASIONAL VENTRICULAR PREMATURE COMPLEXES POSSIBLE ANTERIOR MYOCARDIAL INFARCTION , PROBABLY OLD [30 ms Q WAVE IN V3/V4, OR R < 0.2 mV IN V4] Compared to ECG 02/12/2023 16:14:34 Ventricular premature complex(es) now present Electronically Signed On 03-08-2025 20:00:46 AUTOMOTIVE STARTER REPAIRER by Shawn Arana M.D. [id number]
--- NOTE | 2025-03-08 18:28 | XRR_ITS ---
PROCEDURE INFORMATION: Exam: XR Chest Exam date and time: 03/08/2025 6:35 PM Age: 49 years old Clinical indication: Pain; Angina pectoris; Additional info: Chest pain TECHNIQUE: Imaging protocol: Radiologic exam of the chest. Views: 1 view. COMPARISON: CR XR chest 1V portable [id number] 06/19/2022 3:41 PM FINDINGS: Lungs: Unremarkable. No consolidation. Pleural spaces: Unremarkable. No pleural effusion. No pneumothorax. Heart/Mediastinum: Unremarkable. No cardiomegaly. Bones/joints: Unremarkable. XR/XR chest 1V portable [id number] IMPRESSION: No acute findings.
--- OUTSIDE RECORDS SUMMARY | 2025-03-08 18:31 | XMS_ITS | Patient Health Record ---
Author Organization [facility] Address [address] [place] [address] Care Team Providers Care Clinical Review Specialist Name Role Phone [facility] FINISHED CLOTH EXAMINERCailin SANTO Primary Care Provid er Unavailable Chung Patten Unavailable [phone] Reason For Referral Reason bulging and herniate d disc in lumbar spine Diagnosis 1 Lumbar spine pain (M 54.5) Diagnosis 2 Lumbar spine pain (M 54.50) Referring Provider First Name Cailin Referring Provider Last Name [facility] Referring Provider Speciality Nurse Prac titioner Referred Organization [facility] [place] Referred Provider Chung Patten Referred Address [address],[place], [place],[address], Referred Provider Specialty Neurosurgery Referral Priority Routine Reason evaluate and treat w ith physical [...] Low back pain (M54.5 0) Referral Organization [facility] [place] Referring Provider First Name Chung Referring Provider Last Name Sandor Referring Provider Speciality Neurosurge jesse Referred Provider Physical Therapy Nader Jimenez Referred Provider Specialty Physical The rapist Referral [...] Low back pain (M54.5 0) Referral Organization [facility] [place] Referring Provider First Name Chung Referring Provider Last Name Sandor Referring Provider Speciality Neurosurge ry Referred Provider Sterling Ramos Referred Provider Specialty Intervention al Pain Medicine Referral Priority Routine Reason LESI Diagnosis 1 Lumbar facet arthrop athy (M12.88) Diagnosis 2 Herniation of left s jesús of L4-L5 intervertebral disc (M51.26) Diagnosis 3 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) Diagnosis 4 Numbness (R20.0) Diagnosis 5 Low back pain (M54.5 0) Diagnosis 6 Lumbar radiculopathy (M54.16) Referral Organization [facility] [place] Referring Provider First Name Chung Referring Provider Last Name Sandor Referring Provider Speciality Neurosurge ry Referred Organization [facility] Referred Provider Sterling Ramos Referred Address [address] [place] [address],[place],[address], Referred Provider Specialty Intervention al Pain Medicine Referral Priority Routine Problems Problem Type SNOMED Code ICD Code Onset Dates Problem Status W/U Status Risk Notes Problem Lumbar radiculopathy (324569387) Lumbar radiculopathy (M54.16) Active confirmed Problem Arthropathy of lumbar facet joint (487440639) Lumbar facet arthropathy (M12.88) Active confirmed Problem Displacement of lumbar intervertebral disc without myelopathy (83915564) Herniation of left side of L4-L5 intervertebral disc (M51.26) Active confirmed Problem Degeneration of intervertebral disc of lumbar region with discogenic back pain and lower extremity pain (M51.362) Active confirmed Vital Signs Heart Rate 85 /min 03/02/2025 Temperature 97.6 degrees Fahrenheit 03/02/2025 Respiratory Rate 18 /min 03/02/2025 Height-cm 182.88 cm 03/02/2025 Oximetry 97 % 03/02/2025 Blood pressure diastolic 85 mm Hg 03/02/2025 Weight-kg 113.4 kg 03/02/2025 Height 72 in 03/02/2025 Blood pressure systolic 136 mm Hg 03/02/2025 Weight 250 lbs 03/02/2025 BMI 33.9 kg/m2 03/02/2025 Encounters Encounter Location Date Provider Diagnosis [facility] [place] [address] [place] [address] 03/02/2025 Chung Patten Herniation of left side of L4-L5 intervertebral disc M51.26 ; Lumbar radiculopathy M54.16 ; Degeneration of intervertebral disc of lumbar region with discogenic back pain and lower extremity pain M51.362 ; Lumbar facet arthropathy M12.88 ; Numbness R20.0 and Low back pain M54.50 Assessments Encounter Date Diagnosis (ICD Code) Assessment Notes Treatment Notes Treatment Clinical Notes Section Notes 03/02/2025 Lumbar radiculopathy (ICD-10 - M54.16) 03/02/2025 Herniation of left side of L4-L5 [...] it is both accurate and complete. 03/02/2025 Degeneration of intervertebral disc of lumbar region with discogenic back pain and lower extremity pain (ICD-10 - M51.362) 03/02/2025 Lumbar facet arthropathy (ICD-10 - M12.88) 03/02/2025 Numbness (ICD-10 - R20.0) 03/02/2025 Low back pain (ICD-10 - M54.50) Plan Of Treatment No Information Insurance Providers Payer Name Payer Address Payer Phone Subscriber Number Group Number Insured Name Patient Relationship to Insured Coverage Start Date Coverage End Date [employer] [address] [place] [phone] [id number] Roland Del Angel Self - patient is the insured
--- OUTSIDE RECORDS SUMMARY | 2025-03-08 18:31 | XMS_ITS | Patient Health Record ---
Author Organization [facility] Address [address] [place] [address] Support Name Relationship Address Phone cony Del Angel Emergency Contact Unknown Roland Del Angel Guarantor Unknown [phone] Reason For Referral No Information Medications Medication SIG (Take, Route, Frequency, Duration) Notes Start Date End Date Status HYDROcodone-Acetaminophen 5- 325 MG Tablet 1 tab(s) orally at bedtime 09/29/2015 Active hydroCHLOROthiazide 25 MG Tablet 1 tab(s) orally once a day Active Social History Social History General Social Info Question Answer Notes Tobacco Use: Are you a: never smoker Additional Findings: Tobacco Non-User Current no n-smoker Plan Of Treatment No Information Insurance Providers Payer Name Payer Address Payer Phone Subscriber Number Group Number Insured Name Patient Relationship to Insured Coverage Start Date Coverage End Date [facility] [address] [place] [phone] [id number] Roland Del Angel Self - patient is the insured
--- OUTSIDE RECORDS SUMMARY | 2025-03-08 18:31 | XMS_ITS | Clinical Summary ---
Author Organization [facility] Address [address] [place] [address] Phone Care Team Providers Care Nursery Attendant Name Role Phone Unavailable Primary Care Provider Unavailabl e Allergies Active Allergy Reactions Criticality Noted Date Comments Prednisone Rash Low 2021 Medications atorvastatin (LIPITOR) 10 mg tablet Take 10 mg by mouth daily. Active metoprolol (LOPRESSOR) 1.25 mg/mL Suspension Take by mouth. Active lisinopriL (PRINIVIL) 10 mg tablet Take by mouth daily. Active aspirin (ECOTRIN EC) 81 mg Tablet, Delayed Release (E.C.) Take 81 mg by mouth daily. Active ticagrelor (BRILINTA) 60 mg Tablet Take by mouth. Active Active Problems Problem Noted Date Diagnosed Date Calculus of ureter 03/24/2023 Social History Tobacco Use Types Packs/Day Years Used Date Smoking Tobacco: Never Smokeless Tobacco: Never Tobacco Cessation:Counseling Given: Not Answered Alcohol Use Standard Drinks/Week Comments Not Currently 0 (1 standard drink = 0.6 oz pur e alcohol) Feeling Safe Answer Date Recorded Are you in a relationship wi th someone who hurts you emotionally and/or physically? No 03/24/2023 Sex and Gender Information Value Date Recorded Sex Assigned at Not on file Legal Sex Male 6:33 PM CDT Gender Identity Not on file Sexual Orientation Not on file Last Filed Vital Signs Vital Sign Reading Time Taken Comments Blood Pressure 134/66 03/24/2023 9:15 AM ADMINISTRATIVE ASSISTANT DATA ENTRY Pulse 60 03/24/2023 9:15 AM ADMINISTRATIVE ASSISTANT DATA ENTRY Temperature 36.7 C (98 F) 03/24/2023 7:59 AM ADMINISTRATIVE ASSISTANT DATA ENTRY Respiratory Rate 16 03/24/2023 9:15 AM ADMINISTRATIVE ASSISTANT DATA ENTRY Oxygen Saturation 100% 03/24/2023 9:15 AM ADMINISTRATIVE ASSISTANT DATA ENTRY Inhaled Oxygen Concentration - - Weight 119.6 kg (263 lb 9.6 oz) 03/24/2023 7:59 AM ADMINISTRATIVE ASSISTANT DATA ENTRY Height 182.9 cm (6') 03/24/2023 7:59 AM ADMINISTRATIVE ASSISTANT DATA ENTRY Body Mass Index 35.75 03/24/2023 7:59 AM ADMINISTRATIVE ASSISTANT DATA ENTRY Plan of Treatment Health Maintenance Due Date Last Done Comments HEPATITIS B VACCINES (1 of 3 - 19+ 3-dose series) 1992 08/10/2008, 07/10/2004, 05/01/2004 COLORECTAL SCREENING 2018 Colorectal Cancer Screening 2018 FIT-DNA Q 3 years 2018 FIT/FOBT Q 1 year 2018 Flex Sig/CT Colonography Q 5 years 2018 DTAP/TDAP/TD VACCINES (2 - T d or Tdap) 09/08/2022 09/08/2012, 04/27/2002 ZOSTER VACCINE (1 of 2) 08/05/2023 INFLUENZA VACCINE (#1) 2024 6, 03/09/2015, 03/08/2014, Additional history exists Insurance [facility]
--- OUTSIDE RECORDS SUMMARY | 2025-03-08 18:31 | XMS_ITS | Data Portability ---
Author Organization [place] - [facility] [place], ADMIN Address [address] [place] [id number] Care Team Providers Care Verification Rep Name Role Phone JAQUELINE PATTERSONICA Primary Care Provider Assessment Encounter Date Assessment Date Assessment LastModified by Organization Details LastModified Time 10/06/2023 10/06/2023 48 year old man with CAD, here to establish care. [email or web address] Not available 10/02/2023 15:13:22 01/12/2024 01/12/2024 48 year old man with CAD [email or web address] Not available 01/20/2024 14:40:54 Plan of Treatment Reminders Order Date Submit Date Provider Last Modified By Organization Details Last Modified Time Details Appointments None recorded. Lab unlisted lab - lipid panel 2023 024 [email or web address] [facility] (Lab)_do Not Use, [address], [place], [address], 4 15:18:09 unlisted lab - lipid panel 2023 024 [email or web address] [facility] (Lab)_do Not Use, [address], [place], [address], 4 13:31:35 BMP, serum or plasma 2023 024 [email or web address] [facility] (Lab)_do Not Use, [address], [place], [address], 4 09:49:45 CBC 2023 024 [email or web address] [facility] (Lab)_do Not Use, [address], [place], [address], 4 09:49:45 Referral None recorded. Procedures None recorded. Surgeries None recorded. Imaging US, echocardiog mana - 11/21/23 @ 3 PM at hosp 2023 024 [email or web address] [facility] (Radiology), [address], [place], [address], 4 16:32:32 NM, myocardial perfusion scan - Exercise Cardiolite Stress/Rest 2023 0[facility] [address], [place], [address], 4 14:45:35 Medication Orders None recorded. Patient TargetsNo targets recorded. Patient Instructions Encounter Date Encounter Id Patient Instructions Last Modified By Organization Details Last Modified Time 01/12/2024 [id number] stop medication* - stop aspirin. [email or web address] Not available 01/13/2024 17:26:10 Reason for Referral None Reported. Results Created Date Observation Date Name Description Value Unit Range Abnormal Flag Note LastModifiedBy Organization Detail LastModifiedTime 10/06/19 24 10/06/2023 COMPL ETE BLOOD COUNT WBC 5.9 K/uL 4.6-10 .9 Not Available [facility] (Lab)_do Not Use [address], [place], [place], [address], 10/06/2023 13:47:20 10/06/19 24 10/06/2023 COMPL ETE BLOOD COUNT RBC cnt 5.18 4.45-5 .99 Not Available [facility] (Lab)_do Not Use [address], [place], [place], [address], 10/06/2023 13:47:20 10/06/19 24 10/06/2023 COMPL ETE BLOOD COUNT HGB 16.2 g/dL 13.4-1 7.6 Not Available [facility] (Lab)_do Not Use [address], [place], [address], 10/06/2023 13:47:20 10/06/19 24 10/06/2023 COMPL ETE BLOOD COUNT HCT 45.7 % 40.1-5 3.9 Not Available [facility] (Lab)_do Not Use [address], [place], [address], 10/06/2023 13:47:20 10/06/19 24 10/06/2023 COMPL ETE BLOOD COUNT MCV 88.2 fL 80.1-9 6.9 Not Available [facility] (Lab)_do Not Use [address], [place], [address], 10/06/2023 13:47:20 10/06/19 24 10/06/2023 COMPL ETE BLOOD COUNT MCH 31.3 pg 27.1-3 2.9 Not Available [facility] (Lab)_do Not Use [address], [place], [address], 10/06/2023 13:47:20 10/06/19 24 10/06/2023 COMPL ETE BLOOD COUNT MCHC 35.5 32.1-3 5.9 Not Available [facility] (Lab)_do Not Use [address], [place], [address], 10/06/2023 13:47:20 10/06/19 24 10/06/2023 COMPL ETE BLOOD COUNT RDW 13.9 % 11.6-1 4.4 Not Available [facility] (Lab)_do Not Use [address], [place], [address], 10/06/2023 13:47:20 10/06/19 24 10/06/2023 COMPL ETE BLOOD COUNT plt cnt 164 x10(3 )/mcL 151-44 9 Not Available [facility] (Lab)_do Not Use [address], [place], [address], 10/06/2023 13:47:20 10/06/19 24 10/06/2023 COMPL ETE BLOOD COUNT MPV 8.2 fL 7.5-10 .3 Not Available [facility] (Lab)_do Not Use [address], [place], [address], 10/06/2023 13:47:20 10/06/19 24 10/06/2023 BASIC METAB OLIC PANEL sodium 139 mmol/ L 136-14 9 Not Available [facility] (Lab)_do Not Use [address], [place], [address], 10/06/2023 14:53:22 10/06/19 24 10/06/2023 BASIC METAB OLIC PANEL potassium 3.8 mEq/L 3.6-5. 2 Not Available [facility] (Lab)_do Not Use [address], [place], [address], 10/06/2023 14:53:22 10/06/19 24 10/06/2023 BASIC METAB OLIC PANEL chloride 103 mmol/ L 96-109 Not Available [facility] (Lab)_do Not Use [address], [place], [address], 10/06/2023 14:53:22 10/06/19 24 10/06/2023 BASIC METAB OLIC PANEL carbon dioxide 25 mmol/ L 22-33 Not Available [facility] (Lab)_do Not Use [address], [place], [address], 10/06/2023 14:53:22 10/06/19 24 10/06/2023 BASIC METAB OLIC PANEL BUN 17 mg/dL 8-17 Not Available [facility] (Lab)_do Not Use [address], [place], [place], [address], 10/06/2023 14:53:22 10/06/19 24 10/06/2023 BASIC METAB OLIC PANEL creatinine 1.0 mg/dL 0.6-1. 3 Not Available [facility] (Lab)_do Not Use [address], [place], [place], [address], 10/06/2023 14:53:22 10/06/19 24 10/06/2023 BASIC METAB OLIC PANEL glucose 95 mg/dL 71-109 Not Available [facility] (Lab)_do Not Use [address], [place], [place], [address], 10/06/2023 14:53:22 10/06/19 24 10/06/2023 BASIC METAB OLIC PANEL calcium 8.8 mg/dL 8.6-10 .0 Not Available [facility] (Lab)_do Not Use [address], [place], [place], [address], 10/06/2023 14:53:22 10/06/19 24 10/06/2023 BASIC METAB OLIC PANEL eGFR 90 mL/mi n/1.7 3_m2 >=90 CKD is defin ed by the prese nce of raymond deleon ation rate (GFR) <60 mL for >3 month s and/o r evide nce of kidne y damag e (eg, struc tural abnor malit ies, histo logic abnor malit ies, album inuri a, urina ry sedim ent abnor malit ies, renal tubul ar disor ders, and/o r histo ry of kidne y trans plant ation ) for >3mon ths. This table provi dayron inter preta tion of speci fic eGFR value s. Creat inine measu remen ts, and there fore eGFR calcu latio ns, are affec niecy by very high or very low muscl e mass, muscl e injur y, a diet very high in meat, hepat ic cirrh osis, certa in drugs , etc. Stage s of CKD: Stage Descr iptio n GFR mL/mi n 1 Kidne y damag e with dalila l or incre ased GFR 90 2 Kidne y damag e with mild decre ase in GFR 60 to 89 3 Moder ate decre ase in GFR 30 to 59 4 Sever e decre ase in GFR 15 to 29 5 Kidne y failu re <15 (or dialy sis) Note: GFR Dalila l range >60, equat ion not valid ated for ages <18 and >70 and pregn ant women . Not Available [facility] (Lab)_do Not Use [address], [place], [address], 10/06/2023 14:53:22 10/06/19 24 10/06/2023 BASIC METAB OLIC PANEL anion gap 11.0 mmol/ L 3.1-10 .9 high Not Available [facility] (Lab)_do Not Use [address], [place], [address], 10/06/2023 14:53:22 10/06/19 24 10/06/2023 BASIC METAB OLIC PANEL BUN/crea ratio 17.00 6.01-1 9.99 Not Available [facility] (Lab)_do Not Use [address], [place], [address], 10/06/2023 14:53:22 10/06/19 24 10/06/2023 BASIC METAB OLIC PANEL osmol calc 279 mOsm/ kg 276-29 4 Not Available [facility] (Lab)_do Not Use [address], [place], [address], 10/06/2023 14:53:22 10/06/19 24 10/06/2023 LIPID PANEL cholesterol 210 mg/dL 166-26 9 [facility] ([facility]) recom mends keepi ng total navi stero l level s below 200 mg/dL . Level s from 200-2 39 mg/dL are consi dered borde rline high, while level s above 240 mg/dL are consi dered high. The expec niecy range based on appar ently healt hy popul ation s is highe r than the recom ronnie d range . Not Available [facility] (Lab)_do Not Use [address], [place], [address], 10/06/2023 14:53:24 10/06/19 24 10/06/2023 LIPID PANEL triglyceride s 389 mg/dL 51-199 high Not Available [facility] (Lab)_do Not Use [address], [place], [address], 10/06/2023 14:53:24 10/06/19 24 10/06/2023 LIPID PANEL lipoprotein HDL 35 mg/dL 36-59 low Not Available [facility] (Lab)_do Not Use [address], [place], [address], 10/06/2023 14:53:24 10/06/19 24 10/06/2023 LIPID PANEL LDL calculation 97 mg/dL no reference range Not Available [facility] (Lab)_do Not Use [address], [place], [address], 10/06/2023 14:53:24 10/06/19 24 10/06/2023 LIPID PANEL chol/HDL ratio 6.00 0.01-4 .97 high Not Available [facility] (Lab)_do Not Use [address], [place], [address], 10/06/2023 14:53:24 10/23/19 24 10/20/2023 NM, myoca rdial perfu steve scan No observ ation record ed. [facility] [address], [place], [address], 10/23/2023 14:45:36 01/14/20 24 01/12/2024 US, echoc ardio gram No observ ation record ed. [facility] [address], [place], [address], 01/14/2024 11:32:08 Result Notes None recorded. Procedures Surgical History Date Name Laterality Status Provider Name and Address Organization Details Recorded Time cardiac catheterization completed Lia Gabriel lpn [address] 10/06/2023 11:22:42 Imaging Results None recorded. Procedure Notes None recorded. Medical Equipment None Reported. Allergies Allergen ID Allergen Name Allergen Category Reaction Reaction Severity Criticality Documentation Date Start Date Code Code System Note Provider Name and Address Organization Details Recorded Time 768134 prednison e medicatio n Not available Not available Not available 10/06/2023 8640 RxNorm miguelina Treviño [facility], [facility] [place] 4 11:21:07 Medications Name Sig Start Date Stop Date Status Note LastModified by Organization Details LastModified Time aspirin 81 mg tablet,amanda yed release Take 1 tablet every day by oral route. 01/11 completed Not Available Not Available Not Available nitroglycer in 0.[address] 1 tablet as needed by sublingua l route as directed. active Not Available Not Available No t Available Brilinta 90 mg tablet Take 1 tablet twice a day by oral route. active Not Available Not Available No t Available Vitals Date Recorded Heart rate Body height Oxygen saturation Oxygen saturation in Arterial blood by Pulse oximetry Heart rate Respiratory rate Body mass index (BMI) Body weight Systolic And Diastolic Provider Name and Address Organization Details Last Updated DateTime 4 90 /min 182.88 cm 98 % 98 % 90 /min 16 /min 34 kg/m2 593514. 53 g 128/78 mm[Hg] miguelina Treviño [facility] [place] 4 11:20:16 Date Recorded Body height Oxygen saturation Oxygen saturation in Arterial blood by Pulse oximetry Heart rate Respiratory rate Body mass index (BMI) Body weight Systolic And Diastolic Provider Name and Address Organization Details Last Updated DateTime 4 182.88 cm 98 % 98 % 69 /min 18 /min 34.7 kg/m2 498237. 37 g 136/84 mm[Hg] Archana Pritchard RN [place] - [facility] [place] 15:15:05 Social History None recorded. Functional Status None recorded. Mental Status None recorded. Family History Nothing Reported. Medical History Condition Response HAVE YOU BEEN HOSPITALIZED OR SEEN IN [facility] ER IN THE PAST YEAR ? N USE OF BLOOD THINNERS Y HEART DISEASE Y Past Encounters Encounter ID Performer Location Encounter Start Date Encounter Closed Date Diagnosis/Indication Diagnosis SNOMED-CT Code Diagnosis ICD10 Code Diagnosis IMO Codes Diagnosis Note [id number] Roland Cason MD [employer] [facility] [address] [facility] [place] [id number] 10/06/2023 10:53:16 10/06/2023 11:57:41 Coronary arteriosclerosis 45399110 I25.10 Prior records state that he has had 2 distal RCA stents and a history of at least one LAD stent. Last cath noted a 50-60% eccentric stenosis of the prox LCX. Last echo was performed in July of 2021 that showed an EF of 55-60% with mild to moderate MR Has left-sided chest discomfort not associated with activity with some similarity to the discomfort from his last AR. Given this, we have discussed that we would like to:1. Assess his LVEF and mitral valve with an echocardio gram2. Risk stratify him with an exercise nuclear perfusion stress test Furthermor e, we would like to assess his LDL cholestero l and inform further discussion s about opportunit ies to lower this in light of his intoleranc e to atorvastat in. History of myocardial infarction 076811375 I25.2 STEMI x2 to RCA and LAD stent [id number] Roland Cason MD [employer] [facility] [address] [facility] [place] [id number] 01/12/2024 14:17:55 01/13/2024 14:24:18 Coronary arteriosclerosis 01789044 I25.10 Prior records state that he has had 2 distal RCA stents and a history of at least one LAD stent. Last cath noted a 50-60% eccentric stenosis of the prox LCX. Last echo was performed in July of 2021 that showed an EF of 55-60% with mild to moderate MR Underwent a nuclear perfusion stress test which showed an left-ventr icular ejection fraction of 52% with no perfusion defects noted. Echocardio gram performed which documented left ventricula r ejection fraction to be normal with some anterior and septal wall motion abnormalit ies without significan t valvular heart disease. Patient with symptoms not compatible with angina or anginal-li ke discomfort . We therefore reiterated the low risk test findings as above and endorsed the followin. He does not need to continue dual antiplatel et therapy given how long it has been since his stent placement. We support moving forward with single antiplatel et therapy with ticagrelor and stopping his aspirin. 2. Check a lipid profile - Patient has A wanting us to avoid statin or medical therapy at this time and wants to see how dietary changes have made a difference History of myocardial infarction [id number] I25.2 STEMI x2 to RCA and LAD stent Health Concerns Section Related Observation LastModified by Organization Detai ls LastModified Time None Recorded Concern Status LastModified by Organization Details LastModified Time None Recorded Advance Directives Directive None Recorded Payers Insurance Date Sequence Insurance Name Policy Number Policy Crisostomo Covered Member ID Crisostomo Member ID Guarantor Name 02/08/2024 1 [employer] [facility] [employer]) Roland Del Angel [id number] Roland Del Angel Notes Date Note Type Note Provider Name and Address Organization Details Recorded Time 10/06/2023 text/html 48 year old man here to establish care. History of CAD (s/p stenting 2016, STEMI in 2021). Formerly followed by Dr. Kruse in [place], [place]. States that he has had 3 separate heart attacks . Describes the first two as ones which he was not treated emergently, but ended up needing stents placed. The third was one in which he was taken emergently to the r and d lab technician for stent placement. He was told about another blockage that he had in one of his arteries that was on the borderline, but didn't need to be stented . He has been having episodes of left sided chest pressure that is light in nature, but frequent and based upon his history of prior stents and AR's, is not re-assuring him. He is not as active as he used to be, but symptoms not associated or worsened with activity. He most frequently notices them in the evening. Furthermore, he states that he went off of his statin medication because he was concerned about walking around feeling like a zombie . Since stopping this medicine ( atorvastatin), he states that these symptoms have completely resolved. He has a history of popliteal entrapment syndrome bilaterally and has undergone multiple surgeries. They have told him that there is nothing else that can be done. Roland Cason MD [address] [place] [address], [phone], [facility] [place] 10/06/2023 16:55:32 01/12/2024 text/html 48 year old man here to establish care. History of CAD (s/p stenting 2017, STEMI in 2021). Formerly followed by Dr. Kruse in [place], [place]. He reports that he has had intermittent episodes of mild chest discomfort which does not last longer than 1 minute. Other than that, he has had no other significant symptoms or concerns. TESTING-10/20/2023 Lexiscan: This is a normal exercise nuclear stress MPI. 1. Normal LVEF 52%, TID 0.94. 2. Perfusion imaging showed no defect. 3. No regional wall motion abnormalities noted. 4. No EKG findings suggestive of ischemia. He started the test hypertensive (SBP 140s) and had a marked hypertensive BP response to exercise (SBP 200s). Roland Cason MD [address] [place] [address], [phone], [facility] [place] 01/20/2024 14:44:35
[2025-03-08 18:55] LABS: Hematocrit 47.8 % (37-53); Hemoglobin 17.10 g/dL (11.27-16.99); Mean Corpuscular HGB Conc 35.8 g/dL (30-55); Mean Corpuscular Hemoglobin 31.1 pg (27-33); Mean Corpuscular Volume 86.9 fl (82-101); Nucleated Red Blood Cells % 0 %; Platelet Count 176 10^3/cmm (157-399); Red Blood Count 5.50 10^6/uL (3.85-5.65); White Blood Count 7.71 10^3/uL (3.29-11.43)
--- NOTE | 2025-03-08 18:58 | ED_ITS ---
HPI - Chest Pain 2 General: Chief Complaint: Chest Pain Stated Complaint: Chest Pain Time Seen by Provider: 03/08/25 18:34 History of Present Illness: Patient is 49-year-old gentleman with history of CAD, LAD stent 2017 in [facility], 2019 myocardial infarction in [place], [place], no intervention, according to patient, mid I 2021 here presents to ED with chest pain. This started at 4 PM today. Patient describes it as a chest pressure, in the central area of his chest, left side of his chest, radiating through to his back. This association with feeling like he has to take short breaths. He had association of diaphoresis, burping. He has left-sided jaw pain, upper back pain. He states the upper back pain is similar to previous myocardial infarction. He has not had recent cold or illness. Last cardiac visit was with the MD last year. He states his nuclear medicine test was without any findings. He was stopped on his aspirin and Brilinta, according to patient as per the MD data acquisition technician. He has not had aspirin today. He did have nitroglycerin x 1, which improved his chest pain to now a 4. Associated symptoms: Reports nausea and palpitations; Deny abdominal pain, dyspnea, fever(s) or vomiting Related Data Previous Rx's ?Medication ?Instructions ?Recorded nitroglycerin 0.4 mg sublingual 0.4 mg sublingual Q5M PRN chest 01/12/23 tablet pain #25 tabs ticagrelor 90 mg tablet (Brilinta) 90 mg PO BID #180 t abs 08/12/23 amoxicillin 500 mg capsule 500 mg PO BID 10 days #20 c aps 06/30/24 Allergies Allergy/AdvReac Type Severity Reaction Status Date / Time prednisone Allergy ALGY-Rash Verified 02/08/25 09:00 Review of Systems 2 Const: Denies: fever(s) or chills Card: Reports: chest pain, palpitations and lightheadedness; Denies: dyspnea on exertion Resp: Denies: dyspnea, productive cough or wheezing GI: Reports: nausea; Denies: abdominal pain or vomiting Musc: Reports: joint pain (Jaw); Denies: joint swelling or limited range of motion Skin/Breast: Reports: other (Diaphoresis); Denies: changes in skin color or dry skin Neuro: Denies: numbness in extremities or weakness in extremities Psych: Denies: anxiety Connor/Lymph: Denies: easy bruising or easy bleeding PFSH ED 2 PFSH: Medical History (Updated 03/08/25 @ 20:53 by VICKY Tompkins) Popliteal artery entrapment syndrome CAD (coronary artery disease) ST elevation (STEMI) myocardial infarction Family History Grandmother CAD (coronary artery disease) Grandfather CAD (coronary artery disease) Denies family history of Diabetes Chronic kidney disease (CKD) Lung disease Cancer Hypertension Stroke Social History Smoking and tobacco/nicotine status: never used tobacco/nicotine Alcohol intake: never Substance/Drug Use: never Adopted: No Caregiver/support person: No Lives independently: No Household members: spouse and children service: Yes status: Retired branch: [employer] Assignments: Outside [facility] [employer] ([employer]) Known or Potential Exposure: Environmental Toxins and Infectious Diseases Current occupational status: employed Sexually active: Yes Do you think of yourself as: Straight/Heterosexual Current gender identity: Male Physical Exam 2 Const: COMMON NORMALS: no acute distress, average body habitus, patient oriented x3, no limitations, alert and well nourished GENERAL APPEARANCE: c ooperative ORIENTATION/CONSCIOUSNESS: Yes awake, Yes oriented to person, Yes oriented to place and Yes oriented to time HENMT: COMMON NORMALS: normocephalic and atraumatic HEAD & SCALP: n ormocephalic and atraumatic Eye: GENERAL EYE: appearance normal, both eyes and all related structures E YELID: eyelids normal Neck/C-Spine: COMMON NORMALS: no JVD Chest: COMMONS NORMALS: normal inspection of the chest Resp: COMMON NORMALS: normal respiratory effort EFFORT & INSPECTION: Yes able to speak in complete sentences and Yes symmetric chest movement Cardio: COMMON NORMALS: no JVD, regular rate, regular rhythm, S1 normal heart sound present, S2 normal heart sound present, No gallops present (Cardio), No clicks present (Cardio), No murmurs present (Cardio), No rub (Cardio) and Peripheral pulses 2+ throughout RATE: regular rate RHYTHM: regular rhythm HEART SOUNDS: S1 normal heart sound present and S2 normal heart sound present PERIPHERAL PULSES: Peripheral pulses 2+ throughout GI: COMMON NORMALS: Normal to inspection, nondistended, normoactive bowel sounds present, Soft to palpation, non-tender, No hepatosplenomegaly present, no masses and no bruits PALPATION: Yes Soft to palpation and Yes No hepatosplenomegaly present : COMMON NORMALS: Yes no CVA tenderness BLADDER/KIDNEY EXAM: Yes no CVA tenderness Back/Pelvis: COMMON NORMALS: no CVA tenderness, thoracic and lumbar spine normal to inspection, no thoracic nor lumbar tenderness and thoraco-lumbar ROM normal Extremity: COMMON NORMALS: normal to inspection, full ROM, capillary refill normal, no joint enlargement, no clubbing, cyanosis or edema, no calf tenderness and no pedal edema Neuro: COMMON NORMALS: patient oriented x3 SENSORIUM/ORIENTATION: Yes alert, Yes oriented to person, Yes oriented to place and Yes oriented to time SPEECH: speech normal Psych: ATTITUDE: Yes engaged ACTIVITY/MOTOR BEHAVIOR: Yes appropriate eye contact ATTENTION/CONCENTRATION: Yes attention grossly intact M BONILLA/COGNITION: Yes memory grossly intact Skin: COMMON NORMALS: no rashes or lesions noted, turgor normal and no jaundice GENERAL SKIN EXAM: no rashes or lesions noted and turgor normal Course 2 Reevaluation(s): Reevaluation #1: Patient is improved after nitroglycerin x 1. Vital Signs: Vital signs: Vital Signs Temperature 97.6 F 03/08/25 18:25 Pulse Rate 54 L 03/08/25 21:05 Respiratory Rate 16 03/08/25 20:11 Blood Pressure 141/95 03/08/25 21:05 Pulse Oximetry 93 03/08/25 21:05 Oxygen Delivery Me thod Room Air 03/08/25 20:11 MDM - Chest Pain Medical Decision Making Patient is a pleasant 49-year-old gentleman that presents to the emergency room with chest pain, rating to the shoulder, upper back, left arm, associated with nausea, diaphoresis, and the inability to take a deep breath. Patient has history of coronary artery disease with previous stenting to LAD, and RCI. No longer takes baby aspirin as per his data acquisition technician Jessica Buckley.. I have discussed with patient to start taking a baby aspirin, which can be coated, in the differentials including esophagus spasm. As well, patient has secondary polycythemia vera, with a history of sleep apnea. His current hemoglobin is 17. This is another reason I asked him to take his baby aspirin. Have also asked him to reevaluate his sleep apnea issue as he is not on his CPAP. I have also encouraged him to give blood. In any event, D- dimer is negative, thus ruling out thrombosis. Heart score is 3. Medical Records I reviewed the patient's medical records. Lab Data I reviewed the patient's lab results. 03/08/25 18:50 03/08/25 18:50 Radiology Impressions Chest X-Ray 03/08/25 18:28 IMPRESSION: No acute findings. Laboratory Results WBC 7.71 10^3/uL (3.29-11.43) 03/08/25 18:50 RBC 5.50 10^6/uL (3.85-5.65) 03/08/25 18:50 Hgb 17.10 g/dL (11.27-16.99) H 03/08/25 18:50 Hct 47.8 % (37-53) 03/08/25 18:50 MCV 86.9 fl (82-101) 03/08/25 18:50 MCH 31.1 pg (27-33) 03/08/25 18:50 MCHC 35.8 g/dL (30-55) 03/08/25 18:50 RDW 12.9 % (12.1-15.1) 03/08/25 18:50 Plt Count 176 10^3/cmm (157-399) 03/08/25 18:50 MPV 9.5 fL (7.4-10.4) 03/08/25 18:50 Neut % (Auto) 72.8 % 03/08/25 18:50 Lymph % (Auto) 18.2 % 03/08/25 18:50 [place] % (Auto) 5.8 % 03/08/25 18:50 Eos % (Auto) 2.5 % 03/08/25 18:50 Baso % (Auto) 0.6 % 03/08/25 18:50 Neut # (Auto) 5.61 10^3/uL (1.8-7.7) 03/08/25 18:50 Lymph # (Auto) 1.4 10^3/uL (0.8-4.8) 03/08/25 18:50 [place] # (Auto) 0.5 10^3/uL (0.2-0.9) 03/08/25 18:50 Eos # (Auto) 0.2 10^3/uL (0.0-0.8) 03/08/25 18:50 Baso # (Auto) 0.1 10^3/uL (0.0-0.1) 03/08/25 18:50 Nucleated RBC % (auto) 0 % 03/08/25 18:50 Nucleated RBCs # 0.0 /100WBC 03/08/25 18:50 PT 12.40 SECONDS (12.1-14.9) 03/08/25 18:50 INR 0.86 (0.8-1.2) 03/08/25 18:50 APTT 27.0 SECONDS (23.9-36.7) 03/08/25 18:50 D-Dimer 0.50 ug/mLFEU (0-0.59) 03/08/25 18:50 Sodium 140 mmol/L (136-145) 03/08/25 18:50 Potassium 4.1 mmol/L (3.5-5.1) 03/08/25 18:50 Chloride 103 mmol/L (98-107) 03/08/25 18:50 Carbon Dioxide 24 mmol/L (22-29) 03/08/25 18:50 Anion Gap 17.1 (5-19) 03/08/25 18:50 BUN 17 mg/dL (6-20) 03/08/25 18:50 Creatinine 0.9 mg/dL (0.7-1.2) 03/08/25 18:50 GFR Calculation 89.0 mL/min (90-130) L 03/08/25 18:50 Glucose 115 mg/dL (65-115) 03/08/25 18:50 Calculated Osmolality 292 mOsm/kg (285-295) 03/08/25 18:50 Calcium 9.3 mg/dL (8.5-10.5) 03/08/25 18:50 Total Bilirubin 0.7 mg/dL (0.15-1.2) 03/08/25 18:50 AST 27 U/L (0-40) 03/08/25 18:50 ALT 35 U/L (0-41) 03/08/25 18:50 Alkaline Phosphatase 98 U/L (40-130) 03/08/25 18:50 Troponin T Baseline 7 ng/L (0-15) 03/08/25 18:50 NT-Pro-B Natriuret Pep 147 pg/mL (0-125) H 03/08/25 18:50 Total Protein 8.0 g/dL (6.6-8.7) 03/08/25 18:50 Albumin 4.6 g/dL (3.5-5.2) 03/08/25 18:50 Globulin 3.4 g/dL (1.3-4.6) 03/08/25 18:50 Lipase 47 U/L (13-60) 03/08/25 18:50 All radiology interpretation(s) finalized by discharge ED provider radiology interpretation(s): No acute findings. Discharge Plan Discharge Patient Disposition: Home Clinical Impression: Atypical chest pain, Polycythemia vera, acquired, SHAHLA (obstructive sleep apnea) Condition: Stable Prescriptions: No Action amoxicillin 500 mg capsule 500 mg PO BID 10 Days Qty: 20 0RF nitroglycerin 0.4 mg tablet, sublingual 0.4 mg sublingual Q5M PRN (Reason: chest pain) Qty: 25 0RF Rx Instructions: do not exceed 3 doses per episode Brilinta 90 mg tablet 90 mg PO BID Qty: 180 0RF Discharge Orders: Discharge ED (Routine); Ordered 03/08/25 Ordered By: Nicolette Castro Referrals: April Parikh FNP [Primary Care Provider, Family Practice] Discharge Diet: Low Salt Patient Instructions: Noncardiac Chest Pain (ED), Patient Portal & Viktoria Instructions Activity Restrictions/Additional Instructions: - Take a baby aspirin daily -As we discussed, I am very concerned about your obstructive sleep apnea. Your hemoglobin is 17, which is way too thick. You can give phlebotomy by giving blood. - Take a baby aspirin daily. - [facility] - Return to ED if you have further chest pain. Thank you for choosing [facility] for your healthcare needs today. You have been screened and evaluated and felt safe for discharge. Health conditions do change or evolve sometimes and as such it is important that you follow up with your Primary Doctor to be re checked, 3-5 days is a general good time frame for follow up. You are always welcome to return to the ED for re assessment if your symptoms are worsening or you have new concerns Print Language: Cameroonian Coding Level of Care Code ED Torpedo Specialist for Chg Fwd Heart Score HEART Score Components History: Moderately Suspicious EKG: Normal Age: 45-64 yrs Risk Factors: 1 or 2 Risk Factors Troponin: Baseline Trop <16 ng/L HEART Score RESULT HEART Score: 3
[2025-03-08 19:17] LABS: INR 0.86 (0.8-1.2); Partial Thromboplastin Time 27.0 SECONDS (23.9-36.7); Prothrombin Time 12.40 SECONDS (12.1-14.9)
[2025-03-08 19:18] VITALS: PULSE 60; RESP 17; O2SAT 94
[2025-03-08 19:23] LABS: Troponin(5th) Baseline 7 ng/L (0-15)
[2025-03-08 19:32] LABS: Alanine Aminotransferase 35 U/L (0-41); Albumin Level 4.6 g/dL (3.5-5.2); Alkaline Phosphatase 98 U/L (40-130); Anion Gap 17.1 (5-19); Aspartate Amino Transferase 27 U/L (0-40); Blood Urea Nitrogen 17 mg/dL (6-20); Calcium 9.3 mg/dL (8.5-10.5); Carbon Dioxide 24 mmol/L (22-29); Chloride 103 mmol/L (98-107); Globulin 3.4 g/dL (1.3-4.6); Glucose 115 mg/dL (65-115); Lipase 47 U/L (13-60); NT Pro B Type Natriuretic Pept 147 pg/mL (0-125); Osmolality Calculated 292 mOsm/kg (285-295); Potassium 4.1 mmol/L (3.5-5.1); Sodium 140 mmol/L (136-145); Total Protein 8.0 g/dL (6.6-8.7)
[2025-03-08 20:11] VITALS: BP 150/94; PULSE 69; RESP 16; O2SAT 93
--- NOTE | 2025-03-08 20:28 | ECG_ITS ---
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 Measurements Intervals [place] Rate: 64 P: -3 SC: 174 QRS: -19 QRSD: 94 T: 8 QT: 426 QTc: 442 Interpretive Statements SINUS RHYTHM WITH OCCASIONAL VENTRICULAR PREMATURE COMPLEXES LOW QRS VOLTAGE IN PRECORDIAL LEADS [QRS DEFLECTION < 1.0 mV IN CHEST LEADS] LEFT VENTRICULAR HYPERTROPHY AND ST-T CHANGE [VOLTAGE CRITERIA PLUS ST/T ABNORMALITY] Compared to ECG 03/08/2025 18:29:31 There is no significant change Electronically Signed On 03-08-2025 20:40:24 CANDY SEPARATOR HARD by Shawn Arana M.D. [id number]
[2025-03-08 21:05] VITALS: BP 141/95; PULSE 54; O2SAT 93
== END 2025-03-08 21:06 | disposition home or self-care (01) ==
PROVIDERS: Emergency Medicine; Emergency Provider Physician Assistant; PCP Registered Nurse
DX: R07.89 Other chest pain (principal); D75.1 Secondary polycythemia; G47.33 Obstructive sleep apnea (adult) (pediatric); I25.10 Atherosclerotic heart disease of native coronary artery without angina pectoris
CPT/HCPCS: 71045; 80053; 83690; 83880; 84484; 85025; 85378; 85610; 85730; 93005; 99285; J9999

== ENCOUNTER → 2025-04-24 10:53 | Outpatient (BNVA) | payer OTHER, SELFPAY | PROVIDERS: PCP Registered Nurse; Visit Provider Specialist | DX: Z01.818 Encounter for other preprocedural examination (principal); M75.111 Incomplete rotator cuff tear or rupture of right shoulder, not specified as traumatic; M67.911 Unspecified disorder of synovium and tendon, right shoulder; M19.011 Primary osteoarthritis, right shoulder | CPT/HCPCS: 36415; 73030; 80053; 81001; 85025; 99214 ==